=== PATIENT | female | born 1965 | race Caucasian/White ===

== ENCOUNTER → 2016-03-02 | Outpatient (CLI) | payer BC ==
[~2016-03-02] MED LIST: CLR10 PO; DOCU-94 PO; OXYC-57 PO; RIVA1TAB4 PO; TAMO20TA47 PO
== END | disposition home or self-care (01) ==
LOC: C.CPL 16:58
PROVIDERS: ATTEND Obstetrics & Gynecology
DX: Z01.812 Encounter for preprocedural laboratory examination (principal); Z01.810 Encounter for preprocedural cardiovascular examination

== ENCOUNTER 2016-03-29 08:38 | Observation (INO) | payer BC ==
[2016-03-02 18:58] LABS: BASO % 0.4 %; BASO ABS # 0.02 K/uL (0-0.2); COMPLETE YES; EOS % 1.2 %; HEMATOCRIT 32.6 % (37-47); IG% 0.2 %; LYMPH % 36.9 %; LYMPH ABS # 1.85 K/uL (1.2-3.4); MEAN CELL VOLUME 74.8 fL (80-100); MEAN CORPUSCULAR HEMOGLOBIN 23.4 pg (25-34); MEAN CORPUSCULAR HGB CONC 31.3 g/dl (32-36); MONO % 4.6 %; NEUT % 56.7 %; PLATELET COUNT 192 K/uL (130-400); RED BLOOD COUNT 4.36 M/uL (4.2-5.4); WHITE BLOOD COUNT 5.01 K/uL (4.8-10.8)
[2016-03-02 19:17] LABS: BLOOD UREA NITROGEN 22 mg/dl (7-18); CALCIUM 8.7 mg/dl (8.5-10.1); CARBON DIOXIDE 26 mmol/L (21-32); CHLORIDE 108 mmol/L (98-107); CREATININE 0.86 mg/dl (0.60-1.20); GLUCOSE 91 mg/dl (70-99); POTASSIUM 4.1 mmol/L (3.5-5.1); SODIUM 145 mmol/L (136-145)
[2016-03-11 09:51] VITALS: BMI 29.0
[2016-03-29] VITALS (7 sets, daily range): BP systolic 106–134; BP diastolic 66–88; PULSE 48–80; TEMP 36.4–36.6; O2SAT 97–100; Ht 167.6 cm; Wt 82.7 kg
[~2016-03-29] VITALS: Ht 167.6 cm; Wt 82.7 kg
[~2016-03-29 08:38] MED LIST changes: +ATROPINE SULFATE 0.1 MG/ML 5ML SYR IV PRN; +CEFAZOLIN 2000 MG/60 ML D5W 50 ML IV SCH; -DOCU-94 PO; +EpHEDrine SULFATE INJ 50 MG/ML AMP IV PRN; +HYDROmorphone INJ 1 MG/ML SYR IV PRN; +LACTATED RINGER'S 1000ML 1,000 ML IV SCH; +ONDANSETRON INJ 2 MG/ML 2 ML VIAL IV PRN; -OXYC-57 PO; -RIVA1TAB4 PO
[2016-03-29 09:09] LABS: MEAN CELL VOLUME 76.4 fL (80-100); MEAN CORPUSCULAR HEMOGLOBIN 24.6 pg (25-34); PLATELET COUNT 184 K/uL (130-400); RED BLOOD COUNT 4.84 M/uL (4.2-5.4); WHITE BLOOD COUNT 3.66 K/uL (4.8-10.8)
[2016-03-29 09:15] LABS: MEAN CORPUSCULAR HGB CONC 32.2 g/dl (32-36)
[2016-03-29] MEDS ORDERED: FENTANYL CITRATE INJ 50 MCG/1 ML 2 ML VIAL ONE ×2 (10:54→14:56)
[2016-03-29] MEDS ORDERED: MIDAZOLAM HCL 1 MG/ML 2ML VIAL ONE (10:54)
--- NOTE | 2016-03-29 11:25 | History & Physical Bridge Note ---
H&P Re-Evaluation Bridge Note: I have examined the patient, reviewed the History & Physical and in the interval since the performance of the History & Physical I have noted the following changes of clinical significance: No changes noted
[2016-03-29] MEDS ORDERED: METHYLENE BLUE 0.5% 10 ML VIAL ONE (11:26)
[2016-03-29] MEDS ORDERED: BUPIVACAINE 0.5 % 5 MG/1 ML MPF 30ML VIAL ONE (11:26)
[2016-03-29] MEDS ORDERED: HYDROmorphone INJ 2 MG/ML SYR/VIAL ONE (12:48)
[2016-03-29] MEDS ORDERED: LIDOCAINE HCL 2% 2 ML VIAL (20MG/ML) ONE (12:58)
[2016-03-29] MEDS ORDERED: ONDANSETRON INJ 2 MG/ML 2 ML VIAL ONE (12:58)
[2016-03-29] MEDS ORDERED: PROPOFOL IV EMULSION 10 MG/ML 20 ML VIAL IV ONE (12:58)
[2016-03-29] MEDS ORDERED: ROCURONIUM BROMIDE 10 MG/ML 5 ML VIAL ONE (12:58)
[2016-03-29] MEDS ORDERED: GLYCOPYRROLATE INJ 0.2 MG/ML VIAL ONE (13:42)
[2016-03-29] MEDS ORDERED: NEOSTIGMINE METHYLSULFATE 5 MG/5 ML SYR ONE (13:42)
[2016-03-29] MEDS ORDERED: TISSEEL FIBRIN SEALANT 2ML TOP ONE (14:11)
--- NOTE | 2016-03-29 14:56 | [facility] Post Operative Brief Note ---
Immediate Operative Summary Operative Date Mar 29, 2016. Pre-Operative Diagnosis Abnormal uterine bleeding Post-Operative Diagnosis Same Procedure(s) Performed Robotic Assisted Total Laparoscopic Hysterectomy Bilateral Salpingectomy, Cystoscopy Surgeon Dr Ch Crop Pest Control Specialist Surgeon(s) Dr Ceja Estimated Blood Loss 20 mL Findings Normal appearing uterus, tubes, ovaries. Normal appearing pelvis/abdomen. Bilateral ureters with urine jet. Specimens A. Uterus, bilateral fallopian tubes and cervix Drains de luna to gravity, clear yellow Anesthesia general Complication(s) None Disposition Recovery Room / PACU
[2016-03-29] MEDS: FENTANYL CITRATE INJ 50 MCG/1 ML 2 ML VIAL IV PRN ×4 (14:58→15:13)
[2016-03-29] MEDS ORDERED: KETOROLAC TROMETHAMINE 30 MG/ML VIAL IV. PRN (15:00)
[2016-03-29] MEDS ORDERED: IBUPROFEN 600 MG TAB PO PRN (15:00)
[2016-03-29] MEDS ORDERED: OXYCODONE/ACETAMINOPHEN 5-325 TAB PO PRN (15:00)
[2016-03-29] MEDS ORDERED: PROMETHAZINE HCL INJ 25 MG in SODIUM CHLORIDE 0.9% 50ML 50 ML IV PRN (15:00)
[2016-03-29] MEDS ORDERED: BISACODYL 10 MG SUPP PR PRN (15:00)
[2016-03-29] MEDS ORDERED: ONDANSETRON INJ 2 MG/ML 2 ML VIAL IV PRN (15:00)
[2016-03-29] MEDS ORDERED: SIMETHICONE 80 MG CHEW PO PRN (15:00)
[2016-03-29] MEDS ORDERED: MAGNESIUM HYDROXIDE SUSP 30 ML UDC PO PRN (15:00)
[2016-03-29] MEDS ORDERED: IV FLUIDS COMPLETED PRN (15:15)
--- NOTE | 2016-03-29 15:24 | Anesthesiology Progress Note ---
Anesthesia Post Op Note Date & Time Mar 29, 2016 at 15:24 Vital Signs Pain Intensity: 4 Vital Signs Past 12 Hours Date Time Temp Pulse Resp B/P Pulse Ox O2 Delivery O2 Flow Rate FiO2 03/29/16 15:20 36.1 54 12 102/68 100 Nasal Cannula 2 03/29/16 15:10 52 12 94/59 97 Nasal Cannula 2 03/29/16 15:00 58 12 113/70 100 Nasal Cannula 2 03/29/16 14:51 36.2 69 12 120/80 98 Nasal Cannula 2 03/29/16 09:21 36.6 80 18 131/85 97 Room Air Notes Mental Status: alert / awake / arousable, participated in evaluation Pt Amnestic to Procedure: Yes Nausea / Vomiting: adequately controlled Pain: adequately controlled Airway Patency, RR, SpO2: stable & adequate BP & HR: stable & adequate Hydration State: stable & adequate Anesthetic Complications: no major complications apparent
[2016-03-29] MEDS: OXYCODONE/ACETAMINOPHEN 5-325 TAB PO PRN ×2 (18:34→22:58)
[2016-03-29 21:12] LABS: HEMATOCRIT 32.6 % (37-47)
[2016-03-29] MEDS: DOCUSATE SODIUM 100 MG CAP PO SCH (21:33)
[2016-03-30 01:15] VITALS: BP 115/67; PULSE 77; TEMP 36.8; O2SAT 96
--- NOTE | 2016-03-30 01:33 | OPERATIVE REPORT ---
DATE OF OPERATION: 03/29/2016 PREOPERATIVE DIAGNOSES: Abnormal uterine bleeding, current tamoxifen use, and history of breast cancer. POSTOPERATIVE DIAGNOSES: Same. PROCEDURE PERFORMED: 1. Robotic-assisted total laparoscopic hysterectomy. 2. Bilateral salpingectomy. 3. Cystoscopy. SURGEON: Dr. Ch. EXECUTIVE VP: Dr. Ceja. ESTIMATED BLOOD LOSS: 20 mL FINDINGS: Normal appearing uterus, tubes, and ovaries. Normal appearing pelvis and abdomen. Bilateral ureters showing urine jet. SPECIMENS: Uterus, bilateral fallopian tubes, and cervix. DRAINS: Velasco to gravity, clear yellow. ANESTHESIA: General. COMPLICATIONS: None. DISPOSITION: Stable and good to recovery room. DESCRIPTION OF PROCEDURE: The patient was seen in the preoperative holding area where risks, benefits, alternatives to surgery were reviewed. She elected to proceed with surgery. Informed consent had previously been obtained in the office. All questions were answered. She was taken to the operating room where timeout was called. She was placed under general anesthesia. The abdomen and vagina were prepped and draped in the normal sterile fashion. A Velasco catheter was inserted, a long weighted speculum was placed in the vagina, and anterior wall retractor was placed in the vagina. The cervix was grasped with a single tooth tenaculum and bilateral 0 Vicryl sutures were placed at 3 o'clock and 9 o'clock in the cervix. The medium VCare was then inserted through the cervical os and tied into place with the cervical sutures. Gloves were changed and attention was then turned to the abdomen where a supraumbilical port site was created using the open Reginald cut down technique. The Reginald trocar was placed without difficulty. Gas was used to insufflate the abdomen. A right trocar, a left trocar and a left night assistant port were placed under direct visualization. The da Fifi camera was then inserted and the da Fifi robot was docked and the patient was placed in steep Trendellenberg position. The left uteroovarian ligament was coagulated and cut, followed by the removal of the left fallopian tube using of monopolar scissors. The round ligament was coagulated and cut using PK bipolar cautery and ligated using hot lori. A bladder flap was created with hot lori and the bladder was dissected down from the cervix. Bilateral uterine vessels were coagulated. The procedure was repeated on the contralateral side. The VCare cuff was identified and the incision was made in the cervicovaginal junction on top of the vaginal cuff. This was repeated the entire way around the cervix. This freed the uterus from the surrounding vagina. The uterus was then delivered posteriorly through the vagina using robotic night assistant. The vaginal cuff was reapproximated using a running locked stitch of V-Loc suture. The ureters were identified bilaterally. The entire pelvis was hemostatic. Tisseel was used on all cut edges. Cystoscopy was performed. The bladder was visualized with the above-noted findings. At the conclusion of the cystoscopy, bilateral ureter jets were visualized. The robot was undocked. The supraumbilical site was closed with a suture of 0 Vicryl and the skin was closed with 4-0 Vicryl using subcuticular stitches. Dermabond was placed. The final needle, sponge and instrument counts were correct x2. The patient tolerated the procedure well and she left to go to the recovery room in stable and good condition. I attest to the content of the Intraoperative Record and any orders documented therein. Any exceptio ns are noted below.
[2016-03-30] MEDS ORDERED: OXYC-57 PO (02:50)
--- NOTE | 2016-03-30 02:58 | Discharge Instructions ---
Discharge Instructions Admission Reason for Admission: Abnormal Uterine Bleeding Discharge Discharge Diagnosis / Problem: s/p laparoscopic total hysterectomy Discharge Goals Goal(s): Routine recovery after surgery Activity Recommendations Activity Limitations: per Instructions/Follow-up section . Instructions / Follow-Up Instructions / Follow-Up ACTIVITY RECOMMENDATIONS: Activity: * During the first week at home, your activity should be similar to that done at the hospital prior to discharge. Your primary activity is in-house walking interspersed with rest periods. Preparing lunch for yourself is acceptable. You may go up and down stairs. Try to stay up progressively longer periods of time to help regain your strength more quickly. * During the second week at home, activities should include some meal preparation, walking to strengthen abdominal muscles and riding in a car. You may drive a car and make brief shopping trips at the end of the second week at home. * Lifting should not exceed 15-20 pounds during the first month after surgery. * Sexual intercourse can usually be resumed about 6 weeks after surgery depending on findings at your post-operative examinations. Bathing: * Showers or baths are permissible. Sitting in four to six inches of hot water (sitz bath) is often comforting after vaginal surgery and is permitted at any time. A sitz bath at bedtime can also assist in a better night's sleep. SPECIAL CARE INSTRUCTIONS: The major discomforts related to surgery have now passed and progressive improvement will occur. The tight uncomfortable feeling in the abdominal, pelvic and back area will gradually fade away. Fatigue may take the longest to disappear; your energy level may take several weeks to return to normal. At times you may become frustrated or impatient over not feeling as well or doing as much as you'd like , but this is a normal reaction to surgery and will pass with time. Vaginal Discharge: * Odorous, blood-tinged or brownish discharge may be present for one to three weeks after surgery. * Pads should be used and not tampons. * Stitches may be passed vaginally. * Bleeding may be somewhat increased approximately two weeks after surgery, which is related to the stitches dissolving. * If bleeding becomes free flowing, notify our office at . Bowel Care: * Constipation after surgery is very common. Foods that promote bowel activity (bran, fruit, prune juice) should be included in your diet. * A capsule, DIALOSE-PLUS, can be purchased without a prescription and can be taken daily (one or two capsules) to assist in promoting bowel activity. * If you have had vaginal surgery involving your rectum, we will discuss this when discharged from the hospital. Catheter or "CYSTO-CATH": * Approximately 80% of "bladder repair" patients will require a catheter at home until the swelling recedes. * Some patients require days to weeks before adequate bladder emptying will resume. * In general, after each time you urinate, un-clamp the catheter again. Measure the amount in the bag. When this is consistently below 100cc, call the office to make an appointment to have the catheter removed. Temperature: * Any fever above 100.4 degrees F should be reported to our office at . FOLLOW-UP: Post-Operative Appointments: * Individual instructions will have been given about the timing of your first examination, but this is usually at the end of the second week home. * You will need to call the office at soon after discharge to make the appointment for your post-op check-up if it has not already been scheduled. * Additional information regarding activity, sexual intercourse and when to return to work will be given at this appointment. WE WISH YOU A SPEEDY RECOVERY! Current Hospital Diet Patient's current hospital diet: Clear Liquid Diet Discharge Diet Recommended Diet: Regular Diet Procedures Procedures Performed: Robotic Assisted Total Laparoscopic Hysterectomy Bilateral Salpingectomy, Cystoscopy Pending Studies Studies pending at discharge: no Medical Emergencies . Who to Call and When: Medical Emergencies: If at any time you feel your situation is an emergency, please call 911 immediately. . Non-Emergent Contact Non-Emergency issues call your: Primary Care Provider, Lamp Inspector . . "Provider Documentation" section prepared by Shilpa Ch. VTE Core Measure Inpt VTE Proph given/why not?: Contraindicated
[2016-03-30] MEDS: OXYCODONE/ACETAMINOPHEN 5-325 TAB PO PRN (03:33)
[2016-03-30 03:35] VITALS: BP 114/77; PULSE 73; TEMP 36.6; O2SAT 95
[2016-03-30 07:06] LABS: BUN/CREATININE RATIO 15.6 (10-20); CREATININE 0.81 mg/dl (0.60-1.20)
[2016-03-30 07:29] LABS: MEAN CORPUSCULAR HEMOGLOBIN 24.8 pg (25-34); WHITE BLOOD COUNT 5.73 K/uL (4.8-10.8)
[2016-03-30 07:32] LABS: ANISOCYTOSIS PRESENT; BASO % 0.3 %; BASO ABS # 0.02 K/uL (0-0.2); COMPLETE YES; EOS % 0.7 %; IG% 0.3 %; LYMPH % 36.8 %; LYMPH ABS # 2.11 K/uL (1.2-3.4); MONO % 5.8 %; NEUT % 56.1 %; OVALOCYTES 1+; PLATELET COUNT 138 K/uL (130-400); PLT ESTIMATE NORMAL
[2016-03-30 07:45] VITALS: BP 119/83; PULSE 66; TEMP 36.6; O2SAT 95
[2016-03-30] MEDS: DOCUSATE SODIUM 100 MG CAP PO SCH (07:45)
[2016-03-30] MEDS ORDERED: INFLUENZA VIRUS QUAD VACCINE 0.5 ML SYR IM. ONE (08:00)
[2016-03-30] MEDS ORDERED: INFLUENZA ADMINISTRATION CHARGE ONE (08:00)
--- NOTE | 2016-03-30 08:21 | OB/GYN Progress Note ---
AIRPLANE AND ENGINE INSPECTOR Progress Note Date of Service Mar 30, 2016. Subjective conversation w/ patient Ambulation: ambulating normally Voiding: no voiding problems Passing Gas: Yes Diet Tolerance: Regular Diet Pain: controlled Review of Systems Constitutional: No problem reported Respiratory: No problem reported Cardiac: No problem reported Breast: No problem reported Abdomen: No problem reported Female : No problem reported Objective Vital Signs Date Time Temp Pulse Resp B/P Pulse Ox O2 Delivery O2 Flow Rate FiO2 03/30/16 07:29 36.6 73 16 95 Room Air 03/30/16 03:35 36.6 73 16 114/77 95 Room Air 03/30/16 01:15 96 Room Air 03/30/16 01:15 36.8 77 20 115/67 96 Room Air 03/29/16 21:10 36.5 66 20 134/88 Room Air 03/29/16 18:50 36.6 73 18 106/66 100 Room Air 03/29/16 17:50 36.6 73 18 106/66 100 Room Air 03/29/16 16:50 99 Room Air 03/29/16 16:50 48 20 107/70 99 Room Air 03/29/16 16:20 36.4 50 18 118/76 100 Room Air 03/29/16 15:50 98 Nasal Cannula 2.0 03/29/16 15:50 36.4 54 18 112/71 98 Nasal Cannula 2.0 03/29/16 15:30 36.2 54 16 109/69 100 Nasal Cannula 2 03/29/16 15:20 36.1 54 12 102/68 100 Nasal Cannula 2 03/29/16 15:10 52 12 94/59 97 Nasal Cannula 2 03/29/16 15:00 58 12 113/70 100 Nasal Cannula 2 03/29/16 14:51 36.2 69 12 120/80 98 Nasal Cannula 2 03/29/16 09:21 36.6 80 18 131/85 97 Room Air Physical Exam General Appearance: WELL-APPEARING, NO APPARENT DISTRESS Respiratory/Chest: normal breath sounds, no respiratory distress Cardiovascular: regular rate, rhythm Abdomen: non tender, soft Incision Description: Clean, Dry & Intact Extremities: non-tender, normal inspection Laboratory Results Last 24 Hours Test 03/29/16 09:00 03/29/16 09:33 03/29/16 20:43 03/30/16 06:12 White Blood Count 3.66 K/uL 5.73 K/uL Red Blood Count 4.84 M/uL 4.00 M/uL Hemoglobin 11.9 g/dL 10.4 g/dL 9.9 g/dL Hematocrit 37.0 % 32.6 % 30.0 % Mean Corpuscular Volume 76.4 fL 75.0 fL Mean Corpuscular Hemoglobin 24.6 pg 24.8 pg Mean Corpuscular Hemoglobin Concent 32.2 g/dl 33.0 g/dl RDW Standard Deviation 60.3 fL 59.0 fL RDW Coefficient of Variation 21.4 % 21.3 % Platelet Count 184 K/uL 138 K/uL Neutrophils (%) (Auto) 56.1 % Lymphocytes (%) (Auto) 36.8 % Monocytes (%) (Auto) 5.8 % Eosinophils (%) (Auto) 0.7 % Basophils (%) (Auto) 0.3 % Neutrophils # (Auto) 3.21 K/uL Lymphocytes # (Auto) 2.11 K/uL Monocytes # (Auto) 0.33 K/uL Eosinophils # (Auto) 0.04 K/uL Basophils # (Auto) 0.02 K/uL Immature Granulocyte % (Auto) 0.3 % Immature Granulocyte # (Auto) 0.02 K/uL Platelet Estimate NORMAL Anisocytosis PRESENT Ovalocytes 1+ Sodium Level 144 mmol/L Potassium Level 4.0 mmol/L Chloride Level 108 mmol/L Carbon Dioxide Level 27 mmol/L Anion Gap 9.0 mmol/L Blood Urea Nitrogen 13 mg/dl Creatinine 0.81 mg/dl Est Creatinine Clear Calc Drug Dose 88.0 ml/min Estimated GFR () 96.8 Estimated GFR (Non- 83.5 BUN/Creatinine Ratio 15.6 Random Glucose 84 mg/dl Calcium Level 8.0 mg/dl Assessment and Plan Post-Op Day Number: 1 Continue Routine Care: POD#1. Doing well. Discharge to home today. Instructions reviewed. RTO 2w for postop visit.
--- NOTE | 2016-04-12 11:09 | DISCHARGE SUMMARY ---
PREOPERATIVE DIAGNOSIS: Abnormal uterine bleeding. POSTOPERATIVE DIAGNOSIS: Same. PROCEDURES PERFORMED: Robotic assisted total laparoscopic hysterectomy with bilateral salpingectomy and cystoscopy. SURGEON: Dr. Ch. DEBIT AGENT: Dr. Ceja. INFECTION: None. COURSE OF STAY: The patient was admitted following the above noted procedures. Her postoperative course was unremarkable. She was discharged to home in stable and good condition on 03/30/2016. MEDICATIONS: Percocet and Motrin. ACTIVITY: Pelvic rest and no heavy lifting. DIET: Regular. FOLLOWUP: In 2 weeks in the office.
[2016-04-23] MEDS ORDERED: RIVA1TAB4 PO ×2 (09:47→10:08)
== END 2016-03-30 08:30 | disposition home or self-care (01) ==
LOC: C.ACU 08:38 → C.MS4N 09:40
PROVIDERS: ADMIT Obstetrics & Gynecology; ATTEND Obstetrics & Gynecology
DX: N93.9 Abnormal uterine and vaginal bleeding, unspecified (principal); N84.0 Polyp of corpus uteri; N72 Inflammatory disease of cervix uteri; N83.8 Other noninflammatory disorders of ovary, fallopian tube and broad ligament; C50.919 Malignant neoplasm of unspecified site of unspecified female breast; Z79.810 Long term (current) use of selective estrogen receptor modulators (SERMs)
CPT/HCPCS: 58571; S2900

== ENCOUNTER 2016-04-22 00:30 | Observation (INO) | payer BC, OTHER ==
[~2016-04-22] VITALS: Ht 165.1 cm; Wt 83.0 kg
[~2016-04-22 00:30] MED LIST changes: -ATROPINE SULFATE 0.1 MG/ML 5ML SYR IV PRN; -CEFAZOLIN 2000 MG/60 ML D5W 50 ML IV SCH; -EpHEDrine SULFATE INJ 50 MG/ML AMP IV PRN; -HYDROmorphone INJ 1 MG/ML SYR IV PRN; -LACTATED RINGER'S 1000ML 1,000 ML IV SCH; -ONDANSETRON INJ 2 MG/ML 2 ML VIAL IV PRN
[2016-04-22] MEDS ORDERED: SODIUM CHLORIDE 0.9% 1000ML 1,000 ML IV STA ×2 (00:34)
[2016-04-22] MEDS ORDERED: MoRPHine SULFATE 4 MG/ML 1 ML CARP\\VIAL IV STA ×2 (00:34→03:06)
[2016-04-22] MEDS ORDERED: ONDANSETRON INJ 2 MG/ML 2 ML VIAL IV STA (00:34)
[2016-04-22] MEDS ORDERED: OPTIRAY 320 IV PRN (00:45)
[2016-04-22] MEDS ORDERED: DOCU-94 PO (01:05)
[2016-04-22 01:29] LABS: ISTAT CREATININE 1.1 mg/dl (0.6-1.3); ISTAT HEMOGLOBIN 11.6 g/dl (12.0-16.0); ISTAT IONIZED CALCIUM 1.03 mmol/l (1.12-1.32)
[2016-04-22 01:50] LABS: BASO % 0.2 %; BASO ABS # 0.02 K/uL (0-0.2); EOS % 2.2 %; HEMATOCRIT 34.7 % (37-47); IG% 0.2 %; LYMPH % 8.2 %; LYMPH ABS # 0.69 K/uL (1.2-3.4); MEAN CORPUSCULAR HEMOGLOBIN 25.6 pg (25-34); MEAN CORPUSCULAR HGB CONC 32.9 g/dl (32-36); MONO % 4.4 %; NEUT % 84.8 %; PLATELET COUNT 175 K/uL (130-400); RED BLOOD COUNT 4.45 M/uL (4.2-5.4); WHITE BLOOD COUNT 8.46 K/uL (4.8-10.8)
[2016-04-22 02:07] LABS: CALCIUM 7.7 mg/dl (8.5-10.1); CREATININE 1.2 mg/dl (0.60-1.20); POTASSIUM 3.9 mmol/L (3.5-5.1)
[2016-04-22 02:31] LABS: ANISOCYTOSIS PRESENT; COMPLETE YES
[2016-04-22 02:48] LABS: URINE APPEARANCE CLEAR (CLEAR); URINE BILIRUBIN NEG (NEG); URINE COLOR YELLOW; URINE EPITHELIAL CELL AUTO >30 /lpf (0-5); URINE NITRITE NEG (NEG); URINE PH 6.5 (4.5-7.5); URINE SPECIFIC GRAVITY 1.021 (1.000-1.030); UROBILINOGEN NEG (NEG); ZZUR CULT IF INDIC CLEAN CATCH YES
[2016-04-22 02:54] LABS: MANUAL MICROSCOPIC REQUIRED? NO; REVIEW REQ? NO
--- NOTE | 2016-04-22 02:54 | EMERGENCY ROOM VISIT NOTE ---
History First contact with patient: 00:34 Chief Complaint: ABDOMINAL PAIN Stated Complaint: ABDOMINAL PAIN Nursing Triage Summary: Patient arrived via ems. ems reports patient had 10/10 abdominal pain cramping aqfter eating dinner tonight. Patient is status post partial histerectomy. History of Present Illness The patient is a 50 year old female who presents to the Emergency Room with complaints of lower abdominal pain for the past few hours who had a robotic hysterectomy [address] Ch. Patient has been taking a stool softener but has been having decreased bowel movements. She describes the pain as aching, ranging in severity 8 out of 10. Nothing makes the pain better or worse. EMS gave her fentanyl enroute. Patient denies chest pain, dyspnea, fever, chills, nausea, vomiting, back pain, urinary symptoms, vaginal itching, vaginal discomfort, vaginal discharge. Review of Systems See HPI for pertinent positives & negatives. A total of 10 systems reviewed and were otherwise negative. Past Medical/Surgical History Surgical Problems: (1) S/P laparoscopic hysterectomy History of breast cancer Social History Smoking Status: Never Smoker Smokeless Tobacco Use: No Drug Use: none Marital Status: Housing Status: lives with family Current/Historical Medications Scheduled Docusate Sodium (Colace), 1 CAP PO DAILY Tamoxifen (Nolvadex), 20 MG PO QAM Allergies Coded Allergies: No Known Allergies (Unverified , 03/29/16) Physical Exam Vital Signs Date Time Temp Pulse Resp B/P Pulse Ox O2 Delivery O2 Flow Rate FiO2 04/22/16 02:21 85 18 135/86 96 Room Air 04/22/16 01:00 78 04/22/16 00:38 37.2 76 16 145/87 100 Room Air 04/22/16 00:38 100 Room Air Physical Exam VITALS: Vitals are noted on the nurse's note and reviewed by myself. Vital signs stable. GENERAL: Pleasant female, in no acute distress, nondiaphoretic, well-developed well-nourished. SKIN: The skin was without rashes, erythema, edema, or bruising. There is no tenting of the skin. Capillary reflex less than 2 seconds. HEAD: Normocephalic atraumatic. EARS: External auditory canals clear, tympanic membranes pearly olmstead without erythema or effusion bilaterally. EYES: Pupils equal round and reactive to light and accommodation. Conjunctivae without injection, sclerae without icterus. Extraocular movements intact. NOSE: Patent, turbinates without inflammation or discharge. MOUTH: Mucous membranes moist. Pharynx without erythema or exudate. Uvula midline. Airway patent. Tongue does not deviate. NECK: Supple without nuchal rigidity. No lymphadenopathy. No thyromegaly. Cervical spine is nontender. No JVD. HEART: Regular rate and rhythm without murmurs gallops or rubs. LUNGS: Clear to auscultation bilaterally without wheezes, rales or rhonchi. No dullness to percussion. No retractions or accessory muscle use. ABDOMEN: Positive bowel sounds x 4. Normal tympanic percussion. Soft, tender to palpation lower abdomen, no CVA tenderness, without masses or organomegaly. Leigh sign negative. No guarding or rebound tenderness. MUSCULOSKELETAL: No muscle atrophy, erythema, or edema noted. NEURO: Patient was alert and oriented to person place and time. Normal sensation to light and sharp touch. No focal neurological deficits. Medical Decision & Procedures Laboratory Results 04/22/16 01:35 Red Blood Count 4.45, Mean Corpuscular Volume 78.0, Mean Corpuscular Hemoglobin 25.6, Mean Corpuscular Hemoglobin Concent 32.9, Neutrophils (%) (Auto) 84.8, Lymphocytes (%) (Auto) 8.2, Monocytes (%) (Auto) 4.4, Eosinophils (%) (Auto) 2.2 , Basophils (%) (Auto) 0.2, Neutrophils # (Auto) 7.17, Lymphocytes # (Auto) 0.69 , Monocytes # (Auto) 0.37, Eosinophils # (Auto) 0.19, Basophils # (Auto) 0.02 04/22/16 01:35 Test 04/22/16 00:00 04/22/16 01:11 04/22/16 01:35 Bedside Hemoglobin 11.6 g/dl (12.0-16.0) Bedside Hematocrit 34 % (37-47) Bedside Sodium 140 mEq/L (135-144) Bedside Potassium 3.7 mEq/L (3.3-5.0) Bedside Chloride 106 mEq/L (101-112) Bedside Total CO2 20 mEq/l (24-31) Bedside Blood Urea Nitrogen 18 mg/dl (7-18) Bedside Creatinine 1.1 mg/dl (0.6-1.3) Bedside Glucose (other) 115 mg/dl (70-99) Bedside Ionized Calcium (Pepper) 1.03 mmol/l (1.12-1.32) White Blood Count 8.46 K/uL (4.8-10.8) Red Blood Count 4.45 M/uL (4.2-5.4) Hemoglobin 11.4 g/dL (12.0-16.0) Hematocrit 34.7 % (37-47) Mean Corpuscular Volume 78.0 fL (80-100) Mean Corpuscular Hemoglobin 25.6 pg (25-34) Mean Corpuscular Hemoglobin Concent 32.9 g/dl (32-36) Platelet Count 175 K/uL (130-400) Neutrophils (%) (Auto) 84.8 % Lymphocytes (%) (Auto) 8.2 % Monocytes (%) (Auto) 4.4 % Eosinophils (%) (Auto) 2.2 % Basophils (%) (Auto) 0.2 % Neutrophils # (Auto) 7.17 K/uL (1.4-6.5) Lymphocytes # (Auto) 0.69 K/uL (1.2-3.4) Monocytes # (Auto) 0.37 K/uL (0.11-0.59) Eosinophils # (Auto) 0.19 K/uL (0-0.5) Basophils # (Auto) 0.02 K/uL (0-0.2) RDW Standard Deviation 58.2 fL (36.4-46.3) RDW Coefficient of Variation 20.3 % (11.5-14.5) Immature Granulocyte % (Auto) 0.2 % Immature Granulocyte # (Auto) 0.02 K/uL (0.00-0.02) Anisocytosis PRESENT Anion Gap 9.0 mmol/L (3-11) Est Creatinine Clear Calc Drug Dose 58.4 ml/min Estimated GFR () 60.2 Estimated GFR (Non- 51.9 BUN/Creatinine Ratio 15.0 (10-20) Calcium Level 7.7 mg/dl (8.5-10.1) Total Bilirubin 0.4 mg/dl (0.2-1) Direct Bilirubin 0.1 mg/dl (0-0.2) Aspartate Amino Transf (AST/SGOT) 22 U/L (15-37) Alanine Aminotransferase (ALT/SGPT) 30 U/L (12-78) Alkaline Phosphatase 62 U/L (45-117) Total Protein 6.8 gm/dl (6.4-8.2) Albumin 3.2 gm/dl (3.4-5.0) Lipase 188 U/L (73-393) Medications Administered Medications (Trade) Dose Ordered Sig/Sharon Route Start Time Stop Time Status Last Admin Dose Admin Sodium Chloride 1,000 ml @ 999 mls/hr Q1H1M STAT IV 04/22/16 00:34 04/22/16 01:34 DC 04/22/16 00:34 999 MLS/HR Sodium Chloride (Nss 1000ml) 1,000 ml @ 125 mls/hr Q8H STAT IV 04/22/16 00:34 04/22/16 08:33 04/22/16 00:34 125 MLS/HR Ondansetron HCl (Zofran Inj) 4 mg NOW STAT IV 04/22/16 00:34 04/22/16 00:37 DC 04/22/16 01:14 4 MG Morphine Sulfate (MoRPHine SULFATE INJ) 4 mg NOW STAT IV 04/22/16 00:34 04/22/16 00:37 DC 04/22/16 01:15 4 MG ED Course Prior records/ancillary studies reviewed. Triage Nursing notes reviewed. Additional history obtained from family. The patient's history was concerning for abdominal pain. Differential diagnosis: Etiologies such as appendicitis, diverticulitis, PUD, biliary pathology, UTI, pancreatitis, obstruction, mesenteric ischemia, aortic pathology, infections, inflammatory bowel disease, renal colic, as well as others were entertained. Physical examination findings: As above. ER treatment provided: Morphine, Zofran, IV fluids On reassessment the patient felt better. Diagnostics interpreted by me: The labs revealed no worrisome leukocytosis or electrolyte abnormality Imaging studies: CT ABDOMEN & PELVIS: No prior CT. Suspected right ovarian vein thrombosis. Example image 45 series 2. Free fluid in the abdomen and pelvis. No discrete drainable collection. There is increased density of right uroepithelium suggested. No hydronephrosis. Peripelvic cysts suspected on the left. Findings can be seen in urinary tract infection. Recommend correlation with UA. Suspected portions of borderline appendix in the retrocecal region. There is some fluid around the appendix not specific given free fluid. Appendix likely within normal limits. There are mildly distended fluid-filled small bowel segments. This is seen in lower abdomen and pelvis primarily. May represent ileus. No definite obstruction seen. Possible mural thickening of the small bowel segments versus incomplete distention. Correlate for enteritis. Adnexal regions are not well evaluated. Suspect high position of left ovary with cyst measuring about 2.4 cm. Possible collapsing right ovarian cyst measuring about 2.3 cm. L5 pars defects with anterolisthesis L5 on S1 and asymmetric degenerative changes at L5-S1 along with other nonemergent, incidental findings. Lung bases: Atelectasis. Calcified and noncalcified nodules, for example right middle lobe image 33 series 3. Radiologist: Enrrique Dos Santos M.D. Consultation: A consultation was placed with the ADMINISTRATIVE [employer], Dr. Sims. The case was discussed and diagnostics were reviewed. She recommends medical admission. I spoke to Dr. Sharpe and accepts admission of the patient. The patient was evaluated in the ER for further treatment. Exam and history seem concerning for thrombosis of the ovarian vein. Medicine requested to do the anticoagulation and workup. This is deferred to them. Patient is agreeable to treatment plan of admission.By the evaluation outlined above emergent etiologies such as appendicitis, diverticulitis, PUD, biliary pathology, UTI, pancreatitis, obstruction, mesenteric ischemia, aortic pathology , infections, inflammatory bowel disease, renal colic, as well as others were deemed relatively unlikely. The pt informed about the findings as listed above. All questions were answered and pleased with the treatment. Case reviewed with my attending Medical Decision As above Impression Primary Impression: Thrombosis of ovarian vein Departure Information Dispostion Being Evaluated By Hospitalist Condition FAIR Referrals Georgiana Osborne M.D. (PCP) Patient Instructions My [facility]
--- NOTE | 2016-04-22 03:38 | History and Physical ---
History & Physical Date & Time of Service: Apr 22, 2016 at 03:21 Chief Complaint: Abdominal Pain Primary Care Physician: Georgiana Osborne M.D. History of Present Illness Source: patient Mrs. Trotter is a 50 year old female with Hx of breast ca s/p radiotherapy and recent hysterectomy for abnormal uterine bleeding who presents to the ER with a few days of right lower quadrant pain. Initially she noticed pain on her right lower quadrant 2 days previously on 20 April just after eating dinner and had 1 hour of mild cramping pain which she put down ot has. Without medications this pain completely resolved. She went to her husbands appointment in [place] the following day and was without pain all day until again 1 hour after eating in the evening she developed sudden onset right lower quadrant pain again, severity 4-5/10, she felt a little better after one hour but it did not fully resolve. She then got up to go to the bathroom around 10:30pm and suddenly the severity was 8-9/10 over whole of her lower abdomen and she called for help at which point her family called 911. The pain only resolved with fentanyl when given by the EMT. While in the ER she received x2 morphine 4mg but continues to have 4-5/10 pain on the right side worse on palpation She denies any change in bowel habit, last BM was yesterday evening was normal. Since the surgery however she took 1 week of opiate medication for pain relief and has been needing Colace to help relieve constipation. No nausea or vomiting. She denies history of kidney stones. Other than the hysterectomy she has not had any other abdominal surgeries. Past Medical/Surgical History Breast ca. - diagnosed 2013 treated with left breast lumpectomy with radiation and currently still taking tamoxifen Irregular heavy periods Past Surgical History Hysterectomy Mar 29 - Dr Ch Left breast lumpectomy 2013 Family History FHx mother had PE aged 87yo. Sister - ?DVT Sister - no medical issues x2 brothers - no medical issues Social History Smoking Status: Never Smoker Smokeless Tobacco Use: No Drug Use: none Marital Status: Allergies Coded Allergies: No Known Allergies (Unverified , 03/29/16) Home Medications Scheduled Docusate Sodium (Colace), 1 CAP PO DAILY Tamoxifen (Nolvadex), 20 MG PO QAM Review of Systems Constitutional: No chills, No fever Eyes: No worsening of vision ENT: No hearing loss Respiratory: No cough, No shortness of breath, No sputum, No wheezing Cardiovascular: No chest pain Abdomen: + pain, No GI bleeding, No constipation, No diarrhea, No nausea, No vomiting Musculoskeletal: No joint pain, No muscle pain Genitourinary - Female: No dysuria, No urinary frequency, No urinary incontinence, No urinary retention, No urinary urgency Psychiatric: No depression symptoms Endocrine: No fatigue Hematologic / Lymphatic: No abnormal bleeding/bruising Integumentary: No itch, No rash Physical Exam Vital Signs Date Time Temp Pulse Resp B/P Pulse Ox O2 Delivery O2 Flow Rate FiO2 04/22/16 02:21 85 18 135/86 96 Room Air 04/22/16 01:00 78 04/22/16 00:38 37.2 76 16 145/87 100 Room Air 04/22/16 00:38 100 Room Air General Appearance: WD/WN, no apparent distress Head: normocephalic, atraumatic Eyes: normal inspection, PERRL, EOMI ENT: normal ENT inspection (external), pharynx normal Neck: supple, no JVD, trachea midline Respiratory/Chest: chest non-tender, lungs clear, normal breath sounds, no respiratory distress, no accessory muscle use Cardiovascular: regular rate, rhythm, no edema, no JVD, no murmur, normal peripheral pulses Abdomen/GI: normal bowel sounds, soft, + tenderness (right lower quadrant, without rebound or guarding) Back: no CVA tenderness Extremities/Musculoskelatal: no calf tenderness (size equal b/l), no pedal edema, normal range of motion Neurologic/Psych: jig filler II-XII nml as tested (no facial droop), no motor/sensory deficits, alert, oriented x 3 Skin: normal color, warm/dry, no rash Diagnostics Laboratory Results Results Past 24 Hours Test 04/22/16 00:00 04/22/16 01:11 04/22/16 01:35 Range/Units Urine Color YELLOW Urine Appearance CLEAR CLEAR Urine pH 6.5 4.5-7.5 Urine Specific [place] 1.021 1.000-1.030 Urine Protein NEG NEG Urine Glucose (UA) NEG NEG Urine Ketones NEG NEG Urine Occult Blood 2+ NEG Urine Nitrite NEG NEG Urine Bilirubin NEG NEG Urine Urobilinogen NEG NEG Urine Leukocyte Esterase SMALL NEG Urine WBC (Auto) 5-10 0-5 /hpf Urine RBC (Auto) 0-4 0-4 /hpf Urine Hyaline Casts (Auto) 0 0-5 /lpf Urine Epithelial Cells (Auto) >30 0-5 /lpf Urine Bacteria (Auto) 1+ NEG Bedside Hemoglobin 11.6 12.0-16.0 g/dl Bedside Hematocrit 34 37-47 % Bedside Sodium 140 135-144 mEq/L Bedside Potassium 3.7 3.3-5.0 mEq/L Bedside Chloride 106 101-112 mEq/L Bedside Total CO2 20 24-31 mEq/l Anion Gap 18.0 9.0 3-11 mmol/L Bedside Blood Urea Nitrogen 18 7-18 mg/dl Bedside Creatinine 1.1 0.6-1.3 mg/dl Bedside Glucose (other) 115 70-99 mg/dl Bedside Ionized Calcium (Pepper) 1.03 1.12-1.32 mmol/l White Blood Count 8.46 4.8-10.8 K/uL Red Blood Count 4.45 4.2-5.4 M/uL Hemoglobin 11.4 12.0-16.0 g/dL Hematocrit 34.7 37-47 % Mean Corpuscular Volume 78.0 80-100 fL Mean Corpuscular Hemoglobin 25.6 25-34 pg Mean Corpuscular Hemoglobin Concent 32.9 32-36 g/dl Platelet Count 175 130-400 K/uL Neutrophils (%) (Auto) 84.8 % Lymphocytes (%) (Auto) 8.2 % Monocytes (%) (Auto) 4.4 % Eosinophils (%) (Auto) 2.2 % Basophils (%) (Auto) 0.2 % Neutrophils # (Auto) 7.17 1.4-6.5 K/uL Lymphocytes # (Auto) 0.69 1.2-3.4 K/uL Monocytes # (Auto) 0.37 0.11-0.59 K/uL Eosinophils # (Auto) 0.19 0-0.5 K/uL Basophils # (Auto) 0.02 0-0.2 K/uL RDW Standard Deviation 58.2 36.4-46.3 fL RDW Coefficient of Variation 20.3 11.5-14.5 % Immature Granulocyte % (Auto) 0.2 % Immature Granulocyte # (Auto) 0.02 0.00-0.02 K/uL Anisocytosis PRESENT Sodium Level 142 136-145 mmol/L Potassium Level 3.9 3.5-5.1 mmol/L Chloride Level 109 98-107 mmol/L Carbon Dioxide Level 24 21-32 mmol/L Blood Urea Nitrogen 18 7-18 mg/dl Creatinine 1.20 0.60-1.20 mg/dl Est Creatinine Clear Calc Drug Dose 58.4 ml/min Estimated GFR () 60.2 Estimated GFR (Non- 51.9 BUN/Creatinine Ratio 15.0 10-20 Random Glucose 110 70-99 mg/dl Calcium Level 7.7 8.5-10.1 mg/dl Total Bilirubin 0.4 0.2-1 mg/dl Direct Bilirubin 0.1 0-0.2 mg/dl Aspartate Amino Transf (AST/SGOT) 22 15-37 U/L Alanine Aminotransferase (ALT/SGPT) 30 12-78 U/L Alkaline Phosphatase 62 45-117 U/L Total Protein 6.8 6.4-8.2 gm/dl Albumin 3.2 3.4-5.0 gm/dl Lipase 188 73-393 U/L Microbiology Results 04/22/16 Urine Culture, Received Pending Diagnostic Radiology CT A/P [facility] report Suspected right ovarian vein thrombosis, free fluid in abdomen and pelvis. Increased density in right uroepithelium, findings can be seen in UTI Some fluid around the appendix not specific given free fluid. Appendix likely within normal limits Mildly distended fluid filled bowel segments. May represent ileus. Possible mural thickening of the small bowel segments versus incomplete distension. Correlate for enteritis. Adnexal regions are not well evaluated. Suspect high position of left ovarian cyst measuring about 2.4cm. Possible collapsing right ovarian cyst measuring about 2.3cm. Impression Assessment and Plan 50 year old female with Hx breast ca. on tamoxifen and recent hysterectomy. CT A /P suspected right ovarian vein thrombosis 2 weeks after hysterectomy. 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 NOAG in morning - await full CT A/P report - Consult [facility] [facility] - consider TVUS for diagnosis confirmation given high amount of differentials on CT report, however she is only two weeks out from hysterectomy therefore will confirm with [employer] SUCCESS ADVISOR whether or not this can be done. - Follow up with oncologist regarding tamoxifen and need for hypercoagulable workup given family history Hx breast ca - Continue tamoxifen VTE Prophylaxis - treatment dose Lovenox as above Code - Full Disposition - observation status to med/surg. Possible discharge later today after above. Level of Care Med/Surg VTE Prophylaxis VTE Risk Assessment Done? Y/N: Yes Risk Level: High Given or contraindicated: Enoxaparin (Lovenox)SQ Additional Copies To Georgiana Osborne M.D. Resident Tracking Resident Involvement: Resident Care Provided Care Provided: [facility] Assessment and Plan Attending Addendum: I have physically seen and examined this patient, have directed their medical care, have supervised the medical residents activities, and agree with the H&P as noted above, with the following changes: NONE The patient is awake, well-developed and adequately nourished, alert and oriented 3, normocephalic and atraumatic, lying in bed and in no acute distress. HEENT--PERRL, EOMI, mucous membranes and oropharynx dry. Neck--supple, no JVD or bruits, thyroid normal, trachea midline, no adenopathy. Heart--normal S1 and S2, no extra beats, no murmurs, rubs or gallops. Lungs--clear bilaterally with good air movement, no respiratory distress, no accessory muscle use. Abdomen--normal bowel sounds and soft, tender lower abdomen and nondistended, no hernias or masses, no organomegaly. Extremities--no cyanosis, clubbing or edema. There are good distal pulses b/l. Dermatologic--normal skin turgor, normal color, warm and dry, no abnormal lymph nodes, no rash. Neurologic--cranial nerves II through XII grossly intact, motor and sensory examination normal. Rheumatologic--normal range of motion, nontender, muscles and joints. Psychiatric--normal affect. Assessment and plan: Ex Right ovarian vein thrombosis/abdominal pain--risk factors for thrombosis include breast cancer, tamoxifen use, and family history. The patient will be admitted to observation status medical floor. Emergency department has spoken with Dr. Badillo from [employer] [facility] service, who feels that the patient should be admitted. She'll be placed on therapeutic Lovenox 1 mg/kg subcutaneous every 12 hours, once it is determined insurance coverage , she can be started on long- acting anticoagulation at that time. She will need to discuss with her oncologist the continued use of tamoxifen, which she has to half years left, and the utility of a viable workup.
[2016-04-22] MEDS ORDERED: IV FLUIDS COMPLETED PRN (04:15)
[2016-04-22 04:50] VITALS: BP 123/80; PULSE 73; TEMP 36.9; O2SAT 98; Ht 165.1 cm; Wt 83.0 kg
[2016-04-22] MEDS: ENOXAPARIN 80 MG/0.8 ML SYR SQ SCH ×2 (05:26→18:08)
[2016-04-22] MEDS: ACETAMINOPHEN 325 MG TAB PO PRN ×2 (05:27→21:57)
[2016-04-22] MEDS: KETOROLAC TROMETHAMINE 30 MG/ML VIAL IV PRN ×2 (06:49→18:07)
--- NOTE | 2016-04-22 07:42 | DIAGNOSTIC IMAGING REPORT ---
ABDOMEN AND PELVIS CT WITH IV CONTRAST CT DOSE: 510.91 mGy.cm HISTORY: severe low abd pain, recent hysterectomy TECHNIQUE: Multiaxial CT images of the abdomen and pelvis were performed following the use of intravenous contrast. COMPARISON STUDY: None. FINDINGS: Lingular calcified granuloma. No pneumoperitoneum. No pneumatosis. Bilateral L5 spondylolysis with associated grade I anterolisthesis. Trace perihepatic fluid. The liver, gallbladder, pancreas, spleen, and adrenal glands are unremarkable. Left peripelvic renal cysts. No hydronephrosis. Mild thickening and enhancement within the right renal pelvis and right ureter. The bladder is unremarkable. The uterus is surgically absent. Small amount of fluid within the deep pelvis which is not completely loculated at this time to suggest an abscess. Thrombosed right ovarian vein. Suboptimal evaluation for bowel pathology due to lack of oral contrast. Normal caliber appendix. Small peripheral enhancing low density structure along the right deep pelvis on image 332 may represent a collapsed right ovarian cyst. This measures 2.5 cm. Small amount of fluid surrounding the appendix is likely due to postoperative change. A few mildly dilated fluid-filled loops of small bowel in the deep pelvis. This favors a mild ileus. No evidence for bowel obstruction at this time. IMPRESSION: 1. Status post hysterectomy. Small amount of fluid within the deep pelvis is not loculated at this time to suggest an abscess. There is also small amount of fluid within the right lower quadrant and perihepatic locations. This is likely postoperative. 2. Thrombosed right ovarian vein. 3. Appendix is partially obscured by surrounding fluid but is likely normal in caliber. 4. Mild urothelial thickening and enhancement within the right renal pelvis and right ureter. Recommend correlation with urinalysis to exclude a pyelitis. 5. Additional findings as described above. Electronically signed by: Carson Collins M.D. 04/22/2016 7:41 AM Dictated Date/Time: 04/22/2016 7:31 AM
[2016-04-22 08:00] VITALS: BP 105/70; PULSE 72; TEMP 37; O2SAT 96
[2016-04-22] MEDS: DOCUSATE SODIUM 100 MG CAP PO SCH (09:26)
[2016-04-22] MEDS: TAMOXIFEN CITRATE 10 MG TAB PO SCH (09:28)
--- NOTE | 2016-04-22 09:41 | GYNECOLOGICAL CONSULTATION ---
DATE OF CONSULTATION: 04/22/2016 DATE OF CONSULTATION: 04/22/2016. REQUESTED BY: [facility], Dr. Fam Sandra. CHIEF COMPLAINT: Wanting to know if transvaginal ultrasound can be performed in this postop hysterectomy patient. HISTORY OF PRESENT ILLNESS: Ms. Trotter is a 50-year-old white female with a history of breast cancer status post radiotherapy who recently had a total laparoscopic hysterectomy and bilateral salpingectomy performed by my colleague, Dr. Shilpa Ch. This surgery was uncomplicated. Her ovaries remained intact and normal in appearance. There were no complications. The patient was discharged within 24 hours of her surgery. The patient was seen for a 2-week postoperative visit on April 12, was doing extremely well, was having no issues. The patient notes that approximately 2 days ago on Tuesday she had an episode after eating dinner about 1 hour of very specific right lower quadrant pain that she described as cramping, thought it was bowel related. It resolved spontaneously within an hour. The following day she was pain free. She was able to do her normal daily activities without pain all day and then again 1 hour after eating dinner she developed this onset quite suddenly of some right lower quadrant pain. She described it as 4-5/10 and that it was crampy and that it slowly got better but did not fully resolve. She went to bed at around 10:00 and then at 10:30 got up to go to the bathroom and had an sudden onset of increased severity of this pain which she described over her whole lower abdomen and upper abdomen, at which point in time she called for help, 911 was called and she was brought to the hospital. She was evaluated at the hospital, the pain responded to fentanyl in the field and then in the ER received 2 doses of morphine, but continued to have pain. The patient was put in the CT scanner with only IV contrast for CT scan of the abdomen and pelvis. This revealed several peripheral finding. The gallbladder, pancreas, liver and spleen were normal and unremarkable. There was left peripelvic renal cysts. There was no hydronephrosis noted. There was mild thickening enhancement within the right renal pelvis and right ureter. The bladder was unremarkable. The uterus was surgically absent. There was a small amount of fluid within the deep pelvis which was not completely loculated at the time to suggest abscess. There was a thrombosed right ovarian vein, normal caliber appendix, small peripheral enhancing and low density structure along the right deep pelvis that may represent a collapsed ovarian cyst measuring 2.5 cm. The small amount of fluid surrounding the appendix was thought to be postoperative. There were a few mildly dilated fluid filled loops of bowel in the deep pelvis favoring a mild ileus. I visit the patient this morning. She is lying comfortably in bed. She notes her pain is a 1-2/10. She notes she has had no fevers at home. No nausea, vomiting, no chilling. She notes her last bowel movement was Tuesday and the one before that was Tuesday. She notes that she does not particularly feel constipated nor does she have diarrhea. She notes she has been passing gas. She notes no vaginal bleeding or unusual vaginal discharge. Overall, she is feeling much better. I recommended that the patient be admitted by medicine to consider treatment for her right ovarian vein thrombosis. It appears that she will be getting Lovenox. Of note, this patient has been on tamoxifen 20 mg daily throughout this time and she does have a history of breast cancer. PAST GYNECOLOGIC HISTORY: As noted above. PAST MEDICAL HISTORY: Significant for breast cancer diagnosed in 2013, treated with left breast lumpectomy and radiation, currently taking tamoxifen. She had a history of irregular heavy periods for which she underwent her hysterectomy. PAST SURGICAL HISTORY: Includes laparoscopic total hysterectomy and bilateral salpingectomy on 03/30/2016 and a left breast lumpectomy 2013. FAMILY HISTORY: Mother had a PE age 87, sister has questionable DVT history, 2 brothers with no medical history. SOCIAL HISTORY: She is . She denies significant tobacco, alcohol or drug use. ALLERGIES: He has no known drug allergies. MEDICATIONS AT HOME: Included docusate sodium and tamoxifen. The patient noted that she had taken narcotics OxyIR for about 4 days post-surgery and has taken none since. PHYSICAL EXAMINATION: GENERAL: This is a well-developed, well-nourished white female who is sitting comfortably in her bed. VITAL SIGNS: Her temperature is 36.9, pulse 73, respiration rate 118, blood pressure 123/80. NECK: Supple without thyromegaly or lymphadenopathy. CHEST: Clear to auscultation bilaterally. CARDIOVASCULAR: Regular rate and rhythm without murmurs, gallops or rubs. ABDOMEN: Soft, nondistended. She does note some slight discomfort to palpation in the mid lower pelvis to the right lower quadrant, but there is no rebound or guarding. There are positive bowel sounds noted. EXTREMITIES: Show no edema, no tenderness. Negative Homans sign. PELVIC EXAMINATION: Deferred. LABORATORY DATA: White count 8.46, hemoglobin 11.4, hematocrit 34.7, platelets 175, creatinine 1.1. Her creatinine was 0.86 when she left the hospital after her surgery. Liver functions are normal. Random glucose was 110. Electrolytes normal. Urinalysis revealed 2+ occult blood, small leukocyte esterase, greater than 30 epithelials, +1 bacteria and 5-[address] scan as noted above. ASSESSMENT: This is a 50-year-old white female approximately 3 weeks out from a total laparoscopic hysterectomy and bilateral salpingectomy without complications by my partner Dr. Ch. The patient had the sudden onset of generalized abdominal pain last night. CT scan revealed a right ovarian vein thrombosis which could indeed be the cause of her pain. She has been admitted by the hospitalist service, [facility] hospitalist service and it appears that she will be anticoagulated for this. She has some nonspecific inflammatory changes of the right renal collecting system. I am not sure how to attribute this to her current care. It is very unlikely that she has ureteral injury presenting this far out from her surgery. Typically if the ureter is injured and the patient is leaking urine into her abdomen she will have presented prior to this. Would recommend a cath UA c/s as this finding could be explained by pyelitis. We will attempt to discuss with urology this finding and see what they think about this. I do not suspect that this patient has an abscess. The fluid that is noted in her pelvis most likely consistent with normal postop. She has a normal white blood cell count and no fevers. It is unlikely that this ovarian vein is septic pelvic thrombophlebitis as the patient has not had fevers and adding antibiotics will probably not be indicated. I would NOT recommend a transvaginal ultrasound at this time as she is only 3 weeks out from her hysterectomy and I feel like the risk of disrupting the cuff with the transvaginal probe is outweighed by the potential added information it would give us. I would base the treatment of her ovarian vein thrombosis on the CT scan. Additionally, I think the CT scan is probably more specific for this than an ultrasound may be. A pelvic exam was deferred because the patient is not having any vaginal issues, discharge or bleeding at this time. Consider coagulopathy workup as there appears to be a family hx. May have just been precipitated by surgery. Thank you for this consult. We will continue to follow with you peripherally. Should anything change, please do not hesitate to contact us. The patient does have a followup in our office for a postsurgical exam at [address] Ch where her cuff will indeed be examined. ALICIAD
[2016-04-22 11:10] VITALS: BP 123/78; PULSE 70; TEMP 36.8; O2SAT 98
[2016-04-22 15:25] VITALS: BP 111/75; PULSE 65; TEMP 36.8; O2SAT 97
--- NOTE | 2016-04-22 15:25 | DIAGNOSTIC IMAGING REPORT ---
KUB CLINICAL HISTORY: Lower abdominal pain. Recent hysterectomy. FINDINGS: 2 AP supine abdominal radiographs are correlated with abdominal CT performed the same day 04/22/2016. There is a nonobstructed abdominal bowel gas pattern. There is no radiographic evidence of nephrolithiasis. Numerous phleboliths are identified in the pelvis. Excreted IV contrast fills the bladder. The lung bases appear clear. The bony structures appear intact. IMPRESSION: 1. Nonobstructed abdominal bowel gas pattern. 2. Excreted contrast fills the bladder. Electronically signed by: Sandor Beltrán M.D. 04/22/2016 3:23 PM Dictated Date/Time: 04/22/2016 3:20 PM
--- NOTE | 2016-04-22 21:23 | Family Medicine Progress Note ---
Progress Note Date of Service Apr 22, 2016. Subjective Pt evaluation today including: conversation w/ patient, physical exam, lab review Pain: RLQ pain 1-2/10 Voiding: no voiding problems Patient was seen at the bedside. She was lying down comfortably on her bed. She states that she is feeling better and the abdominal pain is 1-2/10 now. Denies nausea, vomiting, dysuria, hematuria, or any other additional complaints. Constitutional: No chills, No fever, No weight loss Respiratory: No cough, No dyspnea at rest, No dyspnea on exertion, No shortness of breath, No wheezing Cardiovascular: No chest pain, No edema Abdomen: + pain (1-2/10 on the RLQ), No constipation, No diarrhea, No nausea , No vomiting Musculoskeletal: No joint pain, No muscle pain Female : No abnormal vaginal bleeding, No dysuria, No hematuria, No vaginal discharge Skin: No rash Medications Current Inpatient Medications Medications (Trade) Dose Ordered Sig/Sharon Route Start Time Stop Time Status Last Admin Dose Admin Ioversol (Optiray 320) 100 ml UD PRN IV 04/22/16 00:45 04/26/16 00:44 Enoxaparin Sodium (Lovenox Inj) 80 mg Q12@0600,1800 SQ 04/22/16 05:15 05/22/16 05:14 04/22/16 18:08 80 MG Acetaminophen (Tylenol Tab) 650 mg Q4H PRN PO 04/22/16 03:45 05/22/16 03:44 04/22/16 05:27 650 MG Docusate Sodium (coLACE CAP) 100 mg DAILY PO 04/22/16 09:00 05/22/16 08:59 04/22/16 09:26 100 MG Tamoxifen Citrate (Nolvadex Tab) 20 mg QAM PO 04/22/16 09:00 05/22/16 08:59 04/22/16 09:28 20 MG Miscellaneous (Iv Fluids Completed) 1 ea PRN PRN N/A 04/22/16 04:15 04/22/17 04:14 Ketorolac Tromethamine (Toradol Inj) 30 mg Q6H PRN IV 04/22/16 06:45 04/27/16 06:44 04/22/16 18:07 30 MG Objective Vital Signs Date Time Temp Pulse Resp B/P Pulse Ox O2 Delivery O2 Flow Rate FiO2 04/22/16 15:25 36.8 65 16 111/75 97 Room Air 04/22/16 15:25 97 Room Air 04/22/16 11:10 36.8 70 18 123/78 98 Room Air 04/22/16 08:00 Room Air 04/22/16 08:00 37.0 72 18 105/70 96 Room Air 04/22/16 04:50 36.9 73 18 123/80 98 Room Air 04/22/16 04:15 89 20 110/69 97 Room Air 04/22/16 02:21 85 18 135/86 96 Room Air 04/22/16 01:00 78 04/22/16 00:38 37.2 76 16 145/87 100 Room Air 04/22/16 00:38 100 Room Air Physical Exam General Appearance: WD/WN, no apparent distress Neck: supple, no JVD, trachea midline Respiratory/Chest: chest non-tender, lungs clear, normal breath sounds, no respiratory distress, no accessory muscle use Cardiovascular: regular rate, rhythm, no edema Abdomen: normal bowel sounds, non tender, soft, no pulsatile mass Extremities: non-tender, no pedal edema, no calf tenderness Neurologic/Psychiatric: alert, normal mood/affect, oriented x 3 Skin: normal color, warm/dry, no rash Laboratory Results Results Past 24 Hours Test 04/22/16 00:00 04/22/16 01:11 04/22/16 01:35 Range/Units Urine Color YELLOW Urine Appearance CLEAR CLEAR Urine pH 6.5 4.5-7.5 Urine Specific Hayes 1.021 1.000-1.030 Urine Protein NEG NEG Urine Glucose (UA) NEG NEG Urine Ketones NEG NEG Urine Occult Blood 2+ NEG Urine Nitrite NEG NEG Urine Bilirubin NEG NEG Urine Urobilinogen NEG NEG Urine Leukocyte Esterase SMALL NEG Urine WBC (Auto) 5-10 0-5 /hpf Urine RBC (Auto) 0-4 0-4 /hpf Urine Hyaline Casts (Auto) 0 0-5 /lpf Urine Epithelial Cells (Auto) >30 0-5 /lpf Urine Bacteria (Auto) 1+ NEG Bedside Hemoglobin 11.6 12.0-16.0 g/dl Bedside Hematocrit 34 37-47 % Bedside Sodium 140 135-144 mEq/L Bedside Potassium 3.7 3.3-5.0 mEq/L Bedside Chloride 106 101-112 mEq/L Bedside Total CO2 20 24-31 mEq/l Anion Gap 18.0 9.0 3-11 mmol/L Bedside Blood Urea Nitrogen 18 7-18 mg/dl Bedside Creatinine 1.1 0.6-1.3 mg/dl Bedside Glucose (other) 115 70-99 mg/dl Bedside Ionized Calcium (Pepper) 1.03 1.12-1.32 mmol/l White Blood Count 8.46 4.8-10.8 K/uL Red Blood Count 4.45 4.2-5.4 M/uL Hemoglobin 11.4 12.0-16.0 g/dL Hematocrit 34.7 37-47 % Mean Corpuscular Volume 78.0 80-100 fL Mean Corpuscular Hemoglobin 25.6 25-34 pg Mean Corpuscular Hemoglobin Concent 32.9 32-36 g/dl Platelet Count 175 130-400 K/uL Neutrophils (%) (Auto) 84.8 % Lymphocytes (%) (Auto) 8.2 % Monocytes (%) (Auto) 4.4 % Eosinophils (%) (Auto) 2.2 % Basophils (%) (Auto) 0.2 % Neutrophils # (Auto) 7.17 1.4-6.5 K/uL Lymphocytes # (Auto) 0.69 1.2-3.4 K/uL Monocytes # (Auto) 0.37 0.11-0.59 K/uL Eosinophils # (Auto) 0.19 0-0.5 K/uL Basophils # (Auto) 0.02 0-0.2 K/uL RDW Standard Deviation 58.2 36.4-46.3 fL RDW Coefficient of Variation 20.3 11.5-14.5 % Immature Granulocyte % (Auto) 0.2 % Immature Granulocyte # (Auto) 0.02 0.00-0.02 K/uL Anisocytosis PRESENT Sodium Level 142 136-145 mmol/L Potassium Level 3.9 3.5-5.1 mmol/L Chloride Level 109 98-107 mmol/L Carbon Dioxide Level 24 21-32 mmol/L Blood Urea Nitrogen 18 7-18 mg/dl Creatinine 1.20 0.60-1.20 mg/dl Est Creatinine Clear Calc Drug Dose 58.4 ml/min Estimated GFR () 60.2 Estimated GFR (Non- 51.9 BUN/Creatinine Ratio 15.0 10-20 Random Glucose 110 70-99 mg/dl Calcium Level 7.7 8.5-10.1 mg/dl Total Bilirubin 0.4 0.2-1 mg/dl Direct Bilirubin 0.1 0-0.2 mg/dl Aspartate Amino Transf (AST/SGOT) 22 15-37 U/L Alanine Aminotransferase (ALT/SGPT) 30 12-78 U/L Alkaline Phosphatase 62 45-117 U/L Total Protein 6.8 6.4-8.2 gm/dl Albumin 3.2 3.4-5.0 gm/dl Lipase 188 73-393 U/L Microbiology Results 04/22/16 Urine Culture, Received Pending Assessment and Plan This is a 50 y/o female with Hx breast CA on tamoxifen and recent hysterectomy presented to the hospital complaining of RLQ pain. CT showed right ovarian vein thrombosis. 1. 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 Badillo. She doesn't recommend transvaginal ultrasound at this time given she is only s/p 3 wks of hysterectomy and the risk of disrupting the cuff with the transvaginal probe is outweighed by the potential added information from the TVUS. Also deferred pelvic exam because the patient is not having any vaginal issues, discharge or bleeding at this time. Recommended discharge home with anticoagulant. - Patient should follow up with oncologist regarding tamoxifen and need for hypercoagulable workup given family history, which can be done as outpatient - Patient will be discharge home with anticoagulant for 3 months. Will discuss with case mx in am about xarelto coverage. 2. Hx breast ca - Continue tamoxifen - Recommended to follow up with the heme/onc as outpatient 3. VTE Prophylaxis - treatment dose Lovenox as above 4. Code Status - Full Code Reviewed: Pt Seen/Exam by Me Constitutional: denies: fever Respiratory: negative: short of breath Cardiovascular: denies chest pain Gastrointestinal/Abdominal: positive: constipation (last bm 2 days ago), negative: abdominal pain General Appearance: no apparent distress Respiratory: lungs clear, no respiratory distress Cardiovascular: regular rate, rhythm Gastrointestinal: normal bowel sounds, non tender, soft Neurologic/Psychiatric: alert, oriented x 3 Skin Characteristics: warm/dry Assessment/Plan I have reviewed the medical record and performed a history and physical examination of this patient today. I have discussed the case with Dr. Lima. The above note reflects my findings, conclusions, and recommendations.
[2016-04-23 00:20] VITALS: BP 107/69; PULSE 69; TEMP 36.5; O2SAT 97
[2016-04-23] MEDS: ACETAMINOPHEN 325 MG TAB PO PRN (06:07)
[2016-04-23] MEDS: ENOXAPARIN 80 MG/0.8 ML SYR SQ SCH (06:11)
[2016-04-23 07:47] LABS: HEMATOCRIT 32.1 % (37-47); MEAN CELL VOLUME 78.5 fL (80-100); MEAN CORPUSCULAR HEMOGLOBIN 25.2 pg (25-34); MEAN CORPUSCULAR HGB CONC 32.1 g/dl (32-36); MEAN PLATELET VOLUME 9.9 fL (7.4-10.4); PLATELET COUNT 155 K/uL (130-400); RED BLOOD COUNT 4.09 M/uL (4.2-5.4)
[2016-04-23 07:57] LABS: PARTIAL THROMBOPLASTIN RATIO 1.2; PROTHROMBIN TIME (PATIENT) 10.5 SECONDS (9.0-12.0)
[2016-04-23 08:17] LABS: BUN/CREATININE RATIO 11.4 (10-20); CALCIUM 8.2 mg/dl (8.5-10.1); CREATININE 1.4 mg/dl (0.60-1.20); POTASSIUM 4.1 mmol/L (3.5-5.1)
[2016-04-23 08:40] VITALS: BP 122/84; PULSE 85; TEMP 36.4; O2SAT 97
[2016-04-23] MEDS: DOCUSATE SODIUM 100 MG CAP PO SCH (08:42)
[2016-04-23] MEDS: TAMOXIFEN CITRATE 10 MG TAB PO SCH (08:43)
[2016-04-23] MEDS ORDERED: RIVA1TAB4 PO ×3 (09:47→10:08)
--- NOTE | 2016-04-23 09:52 | Discharge Instructions ---
Discharge Instructions Date of Service Apr 23, 2016. Admission Reason for Admission: Abdominal Pain, Trombosis Of Ovarian Vein Discharge Discharge Diagnosis / Problem: Ovarian vein thrombosis Discharge Goals Goal(s): Decrease discomfort, Improve disease control, Therapeutic intervention Activity Recommendations Activity Limitations: resume your previous activity . Instructions / Follow-Up Instructions / Follow-Up You were admitted to the hospital for abdominal pain and on imaging found to have ovarian vein thrombosis. PATHOLOGY TECHNOLOGIST was consulted and at this moment they don't think you don't need to have transvaginal ultrasound given the possible complication. Recommended to start on blood thinner. Please take Xarelto 15mg twice for 20 days and then 20mg daily for total 3 months. Please follow up with the Heme/Onc regarding tamoxifen and for hypercoagulable workup given family history. Follow up with the PATHOLOGY TECHNOLOGIST. Current Hospital Diet Patient's current hospital diet: Regular Diet Discharge Diet Recommended Diet: Regular Diet Pending Studies Studies pending at discharge: no Medical Emergencies . Who to Call and When: Medical Emergencies: If at any time you feel your situation is an emergency, please call 911 immediately. . Non-Emergent Contact Non-Emergency issues call your: Primary Care Provider . . "Provider Documentation" section prepared by Dillon Lima. VTE Core Measure Inpt VTE Proph given/why not?: Enoxaparin (Lovenox)SQ
[2016-04-23 10:31] VITALS: BP 122/84; PULSE 85; TEMP 36.4; O2SAT 97
--- NOTE | 2016-04-23 12:23 | Progress Note ---
Progress Note Date of Service Apr 23, 2016. Progress Note CAKE [facility]IXER Progress Note Patient seen/examined. Today, she is feeling well. Pain has improved. Scant pink vaginal discharge - no bleeding. Denies fever/chills/nausea/vomiting. Tolerating PO. Ambulating ok. Last Vital Signs Documentation Date Time Temp Pulse Resp B/P Pulse Ox O2 Delivery O2 Flow Rate FiO2 04/23/16 10:31 36.4 85 16 97 Room Air 04/23/16 08:40 122/84 Gen: AAOx3 NAD Abd: Soft, NTTP. Incisions healing well. : no bleeding Ext: no edema, no calf tenderness Back: no CVAT Last 24 Hours Test 04/23/16 07:39 White Blood Count 3.80 K/uL Red Blood Count 4.09 M/uL Hemoglobin 10.3 g/dL Hematocrit 32.1 % Mean Corpuscular Volume 78.5 fL Mean Corpuscular Hemoglobin 25.2 pg Mean Corpuscular Hemoglobin Concent 32.1 g/dl RDW Standard Deviation 59.3 fL RDW Coefficient of Variation 20.6 % Platelet Count 155 K/uL Mean Platelet Volume 9.9 fL Prothrombin Time 10.5 SECONDS Prothromb Time International Ratio 1.0 Activated Partial Thromboplast Time 31.1 SECONDS Partial Thromboplastin Ratio 1.2 Sodium Level 144 mmol/L Potassium Level 4.1 mmol/L Chloride Level 112 mmol/L Carbon Dioxide Level 22 mmol/L Anion Gap 10.0 mmol/L Blood Urea Nitrogen 16 mg/dl Creatinine 1.40 mg/dl Est Creatinine Clear Calc Drug Dose 50.0 ml/min Estimated GFR () 49.9 Estimated GFR (Non- 43.1 BUN/Creatinine Ratio 11.4 Random Glucose 82 mg/dl Calcium Level 8.2 mg/dl A/P 1. 50yo with ovarian venous thrombosis, s/p robotic-assisted hysterectomy 3 weeks ago - started on anticoagulation per medicine/heme - due to recent surgery, do not recommend transvaginal ultrasound. Recommend nothing in vagina for 6 weeks postop - no vaginal bleeding 2. Elevated creatinine - does not seem to be related to surgery, as Cr on POD#1 was 0.81. No CVA tenderness, and she is urinating well. During surgery, bilateral ureter flow was seen on cysto. - recommend further workup by medicine, consider consultation of nephrology if medicine team feels is necessary 3. Will plan to see patient in the office at 6 weeks postop. Discussed possibility of increased bleeding with anticoagulants - surgically, she is likely healed - if she develops vaginal bleeding that fills a pad, please call and be seen sooner than 6 weeks postop.
--- NOTE | 2016-04-23 22:29 | Discharge Summary ---
Discharge Summary Date of Service Apr 23, 2016. (Dillon Lima MD) Discharge Summary Admission Date: Apr 22, 2016 at 03:47 Discharge Date: Apr 23, 2016 Discharge Disposition: Home Principal Diagnosis: Right ovarian vein thrombosis Procedures: Patient Name: BRETT BOYLE Unit Number: [id number] Dictated: 04/22/16730 Transcribed: 04/22/16730 [facility] Printed Date/Time: [~ rep prt dt]/[~ rep prt tm] [~ rep ct labl] - [~ rep ct ivnm] [facility] [place] [place] [address] Dictated: 04/22/16730 Transcribed: 04/22/16730 [facility] Printed Date/Time: [~ rep prt dt]/[~ rep prt tm] [~ rep ct labl] - [~ rep ct ivnm] ABDOMEN AND PELVIS CT WITH IV CONTRAST CT DOSE: 510.91 mGy.cm HISTORY: severe low abd pain, recent hysterectomy TECHNIQUE: Multiaxial CT images of the abdomen and pelvis were performed following the use of intravenous contrast. COMPARISON STUDY: None. FINDINGS: Lingular calcified granuloma. No pneumoperitoneum. No pneumatosis. Bilateral L5 spondylolysis with associated grade I anterolisthesis. Trace perihepatic fluid. The liver, gallbladder, pancreas, spleen, and adrenal glands are unremarkable. Left peripelvic renal cysts. No hydronephrosis. Mild thickening and enhancement within the right renal pelvis and right ureter. The bladder is unremarkable. The uterus is surgically absent. Small amount of fluid within the deep pelvis which is not completely loculated at this time to suggest an abscess. Thrombosed right ovarian vein. Suboptimal evaluation for bowel pathology due to lack of oral contrast. Normal caliber appendix. Small peripheral enhancing low density structure along the right deep pelvis on image 332 may represent a collapsed right ovarian cyst. This measures 2.5 cm. Small amount of fluid surrounding the appendix is likely due to postoperative change. A few mildly dilated fluid-filled loops of small bowel in the deep pelvis. This favors a mild ileus. No evidence for bowel obstruction at this time. IMPRESSION: 1. Status post hysterectomy. Small amount of fluid within the deep pelvis is not loculated at this time to suggest an abscess. There is also small amount of fluid within the right lower quadrant and perihepatic locations. This is likely postoperative. 2. Thrombosed right ovarian vein. 3. Appendix is partially obscured by surrounding fluid but is likely normal in caliber. 4. Mild urothelial thickening and enhancement within the right renal pelvis and right ureter. Recommend correlation with urinalysis to exclude a pyelitis. 5. Additional findings as described above. Electronically signed by: Carson Collins M.D. 04/22/2016 7:41 AM Dictated Date/Time: 04/22/2016 7:31 AM The status of this report is Signed. Draft = Not yet reviewed or approved by Radiologist. Signed = Reviewed and approved by Radiologist. <AttendingPhy>Fam Sandra M.D.</AttendingPhy> <FamilyPhy>Georgiana Osborne M.D.</FamilyPhy> <PrimaryPhy>Georgiana Osborne M.D.</PrimaryPhy> <UnitNumber> [id number]</UnitNumber> <VisitNumber>[id number]</VisitNumber> <PatientName> BRETT BOYLE Victorino</PatientName> <DateOfBirth>1965</DateOfBirth> <Location> C.MS4N</Location> <ServiceDate>04/22/16</ServiceDate> <MNE>ESINDI</MNE> < OrderingPhy>Estefany Robles PA-C</OrderingPhy> <OrderingPhyMNE>f rep ord dr tao</OrderingPhyMNE> <DictatingPhyMNE>f rep dict dr tao</DictatingPhyMNE> < CCListMNE>f rep ct jarrette</CCListMNE> <AdmittingPhyMNE>f pt admit dr tao</ AdmittingPhyMNE> <AttendingPhyMNE>f pt attend dr tao</AttendingPhyMNE> <ConsultingPhyMNE>f pt consult dr tao</ConsultingPhyMNE> <FamilyPhyMNE>f pt fam dr tao</FamilyPhyMNE> <OtherPhyMNE>f pt other dr tao</OtherPhyMNE> < PrimaryPhyMNE>f pt prim care dr tao</PrimaryPhyMNE> <ReferringPhyMNE>f pt referring dr tao</ReferringPhyMNE> Patient Name: BRETT BOYLE Unit Number: [id number] Dictated: 04/22/[id number] Transcribed: 04/22/16 152 EV Printed Date/Time: [~ rep prt dt]/[~ rep prt tm] [~ rep ct labl] - [~ rep ct ivnm] [facility] Radiology Department [place] [id number] Dictated: 04/22/16 152 Transcribed: 04/22/16 1520 [facility] Printed Date/Time: [~ rep prt dt]/[~ rep prt tm] [~ rep ct labl] - [~ rep ct ivnm] [facility] CLINICAL HISTORY: Lower abdominal pain. Recent hysterectomy. FINDINGS: 2 AP supine abdominal radiographs are correlated with abdominal CT performed the same day 04/22/2016. There is a nonobstructed abdominal bowel gas pattern. There is no radiographic evidence of nephrolithiasis. Numerous phleboliths are identified in the pelvis. Excreted IV contrast fills the bladder. The lung bases appear clear. The bony structures appear intact. IMPRESSION: 1. Nonobstructed abdominal bowel gas pattern. 2. Excreted contrast fills the bladder. Electronically signed by: Sandor Beltrán M.D. 04/22/2016 3:23 PM Dictated Date/Time: 04/22/2016 3:20 PM The status of this report is Signed. Draft = Not yet reviewed or approved by Radiologist. Signed = Reviewed and approved by Radiologist. <AttendingPhy>Zehra Camargo M.D.</AttendingPhy> <FamilyPhy>Georgiana Osborne M.D.< /FamilyPhy> <PrimaryPhy>Georgiana Osborne M.D.</PrimaryPhy> <UnitNumber>[id number]</ UnitNumber> <VisitNumber>[id number]</VisitNumber> <PatientName>BRETT BOYLE</PatientName> <DateOfBirth>1965</DateOfBirth> <Location>C.MS4N< /Location> <ServiceDate>04/22/16</ServiceDate> <MNE>ESINDI</MNE> <OrderingPhy> Jonas Stevenson M.D.</OrderingPhy> <OrderingPhyMNE>f rep ord dr tao</ OrderingPhyMNE> <DictatingPhyMNE>f rep dict dr tao</DictatingPhyMNE> <CCListMNE> f rep ct jarrette</CCListMNE> <AdmittingPhyMNE>f pt admit dr tao</AdmittingPhyMNE> < AttendingPhyMNE>f pt attend dr tao</AttendingPhyMNE> <ConsultingPhyMNE>f pt consult dr tao</ConsultingPhyMNE> <FamilyPhyMNE>f pt fam dr tao</FamilyPhyMNE> <OtherPhyMNE>f pt other dr tao</OtherPhyMNE> < PrimaryPhyMNE>f pt prim care dr tao</PrimaryPhyMNE> <ReferringPhyMNE>f pt referring dr tao</ReferringPhyMNE> (Dillon Lima MD) Medication Reconciliation New Medications: Rivaroxaban (Xarelto) 20 Mg Tab 20 MG PO DAILY for 70 Days, #70 TAB Rivaroxaban (Xarelto) 20 Mg Tab 15 MG PO BID for 20 Days, #28 TAB Continued Medications: Docusate Sodium (Colace) 100 Mg Cap 1 CAP PO DAILY, CAP Tamoxifen (Nolvadex) 20 Mg Tab 20 MG PO QAM, TAB Discharge Exam Patient was seen at the bedside. She states that her pain almost resolved, it is down to 2/10. She complains of generalized abdominal discomfort. She didn't have bowel movements for past 2 days, the generalized abdominal discomfort can be explained by this. Denies nausea or vomiting. Geovanny any other additional complaints. Review of Systems: Constitutional: No chills, No fever Respiratory: No cough, No dyspnea at rest, No dyspnea on exertion, No shortness of breath, No sputum, No wheezing Cardiovascular: No chest pain, No edema Abdomen: + pain (complains of generalized abdominal discomfort, RLQ pain is reduced to 1-2/10), No constipation, No diarrhea, No nausea, No vomiting Genitourinary - Female: No dysuria, No hematuria, No vaginal bleeding, No vaginal discharge Neurologic: No weakness Integumentary: No rash Physical Exam: General Appearance: WD/WN, no apparent distress Neck: supple, trachea midline Respiratory/Chest: chest non-tender, lungs clear, normal breath sounds, no respiratory distress, no accessory muscle use Cardiovascular: regular rate, rhythm, no edema Abdomen / GI: normal bowel sounds, non tender, soft Extremities: no calf tenderness, no pedal edema, non-tender Neurologic/Psychiatric: alert, normal mood/affect, oriented x 3 Skin: normal color, warm/dry, no rash (Dillon Lima MD) Review of Systems: Constitutional: No fever Respiratory: No shortness of breath Cardiovascular: No chest pain Abdomen: + problem reported (upper abdomen mild cramping after having a bowel movement), No nausea, No pain, No vomiting Physical Exam: General Appearance: no apparent distress Respiratory/Chest: lungs clear, no respiratory distress Cardiovascular: regular rate, rhythm Abdomen / GI: normal bowel sounds, non tender, soft Neurologic/Psychiatric: alert, oriented x 3 Skin: warm/dry (Zehra Camargo M.D.) Hospital Course This is a 50 y/o female with Hx breast CA on tamoxifen and recent hysterectomy presented to the hospital complaining of RLQ pain. CT showed right ovarian vein thrombosis. Right ovarian vein thrombosis Patient was started on Lovenox. Consulted GEOLOGICAL SURVEY FIELD ASSISTANT and seen by Dr. Badillo. She doesn't recommend transvaginal ultrasound at this time given she is only s/p 3 wks of hysterectomy and the risk of disrupting the cuff with the transvaginal probe is outweighed by the potential added information from the TVUS. Also deferred pelvic exam because the patient is not having any vaginal issues, discharge or bleeding at this time. Recommended discharge home with anticoagulant. Patient was discharge home with Xarelto 15mg BID [id number] and 20mg daily for total 3 months. Hx breast ca Patient was recommended to follow up with oncologist regarding tamoxifen and need for hypercoagulable workup given family history of DVT. Scheduled to follow up with the Heme/Onc. Total Time Spent: Greater than 30 minutes This includes examination of the patient, discharge planning, medication reconciliation, and communication with other providers. (Dillon Lima MD) I have reviewed the medical record and performed a history and physical examination of this patient today. I have discussed the case with Dr Lima. The above note reflects my findings, conclusions, and recommendations. Total Time Spent: Greater than 30 minutes (40) (Zehra Camargo M.D.) Discharge Instructions Please refer to the electronic Patient Visit Report (Discharge Instructions) for additional information. (Dillon Lima MD) Additional Copies To Georgiana Osborne M.D.
== END 2016-04-23 13:45 | disposition home or self-care (01) ==
LOC: ENRESERVTM → ENRESERVDT → EDBD 00:30 → C.EDA 00:31 → C.MS4N 03:47
PROVIDERS: ADMIT Hospitalist; ATTEND Family Medicine
DX: I82.890 Acute embolism and thrombosis of other specified veins (principal); Z85.3 Personal history of malignant neoplasm of breast; Z83.2 Family history of diseases of the blood and blood-forming organs and certain disorders involving the immune mechanism

== ENCOUNTER → 2016-12-03 | Outpatient (CLI) | payer BC ==
[~2016-12-03] MED LIST changes: -CLR10 PO; +DOCU-94 PO; +RIVA1TAB4 PO; -TAMO20TA47 PO; +TAMO20TA9 PO
== END | disposition home or self-care (01) ==
LOC: C.LABSPEC 17:19
PROVIDERS: ATTEND Physician Assistant
DX: B37.3 Candidiasis of vulva and vagina (principal)

== ENCOUNTER → 2017-01-04 | Outpatient (CLI) | payer BC ==
--- NOTE | 2017-01-04 14:56 | DIAGNOSTIC IMAGING REPORT ---
FLUOROSCOPIC GUIDED LEFT HIP STEROID INJECTION FLUOROSCOPY TIME: 4 seconds. A single fluoroscopic spot image. HISTORY: Left hip pain.. PROCEDURE: After obtaining written informed consent, the patient was placed supine on the fluoroscopy table. A suitable site for needle insertion was marked using fluoroscopic guidance. The left hip was prepped and draped in the usual sterile fashion. 1% lidocaine was used for skin, subcutaneous and deep soft tissue anesthesia. Under intermittent fluoroscopic guidance, a 22 gauge x 3.5 inch spinal needle was inserted into the left hip joint. 2 cc of Optiray 300 was injected to confirm the intra-articular location. This is followed by a mixture of 5cc of 0.5% bupivacaine and 2 cc of betamethasone at the request of the referring physician. The needle was then removed. There were no apparent complications. IMPRESSION: Fluoroscopic-guided left hip steroid injection without immediate complication. Electronically signed by: Carson Collins M.D. 01/04/2017 2:55 PM Dictated Date/Time: 01/04/2017 2:55 PM
== END | disposition home or self-care (01) ==
LOC: C.RADBC 13:41
PROVIDERS: ATTEND Orthopaedic Surgery
DX: M16.12 Unilateral primary osteoarthritis, left hip (principal)

== ENCOUNTER → 2017-06-23 | Outpatient (CLI) | payer OTHER ==
--- NOTE | 2017-06-23 11:14 | DIAGNOSTIC IMAGING REPORT ---
LEFT FOOT 3 VIEWS HISTORY: LEFT FOOT PAIN COMPARISON: None. FINDINGS: There is no fracture or dislocation. Soft tissues are unremarkable. No radiopaque foreign bodies. Severe cartilage space narrowing with [id number] articulation, subchondral sclerosis, and marginal osteophytes at the first tarsometatarsal joint. There is mild soft tissue swelling at this location. No definite bony erosions. There is also mild osteoarthritis at the first MTP joint. The Lisfranc joint is well aligned. IMPRESSION: 1. No fracture or dislocation within the left foot. 2. 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 Electronically signed by: Carson Collins M.D. 06/23/2017 11:13 AM Dictated Date/Time: 06/23/2017 11:10 AM
== END | disposition home or self-care (01) ==
LOC: C.RAD1850 10:59
PROVIDERS: ATTEND Family Medicine
DX: M79.672 Pain in left foot (principal); M19.072 Primary osteoarthritis, left ankle and foot

== ENCOUNTER 2017-09-30 04:55 | Inpatient (IN) | payer OTHER ==
[2017-08-10 13:37] VITALS: BMI 29.0
[2017-08-24 13:40] VITALS: BMI 31.0
--- NOTE | 2017-08-24 13:53 | PAT Medication Instructions ---
Service Date Aug 24, 2017. Current Home Medication List Letrozole (Femara), 2.5 MG PO QAM Loratadine (Claritin), 10 MG PO UD PRN for PRN Medication Instructions For Your Scheduled Surgery - Check with surgeon for instructions: Letrozole (Femara), 2.5 MG PO QAM - Hold the following medications the morning of surgery: Loratadine (Claritin), 10 MG PO UD PRN for PRN (if needed) - Take the following medications as scheduled the night before surgery: Loratadine (Claritin), 10 MG PO UD PRN for PRN (if needed) If you have any questions please call us at [phone] or [phone] or [phone]
--- NOTE | 2017-09-29 10:03 | HISTORY & PHYSICAL EXAMINATION ---
DATE OF ADMISSION: 09/30/2017 CHIEF COMPLAINT: Primary osteoarthritis of the left hip. HISTORY OF PRESENT ILLNESS: Violeta is a pleasant 52-year-old female who has been having left hip pain for about 3 years. X-rays and clinical examination were diagnostic for primary osteoarthritis of the left hip. She has tried intraarticular hip injections, which have taken care of all of her pain but unfortunately they do not last long. She has elected to proceed with a left total hip arthroplasty. PAST MEDICAL HISTORY: Significant for OVT, which is an ovarian blood clot after a hysterectomy over a year ago. She was on Xarelto for 3 months but it resolved. Breast cancer in 2013, which was treated with a lumpectomy. SURGICAL HISTORY: Significant for lumpectomy of the left breast in 2013 and D and C in 2014, hysterectomy in 2016. ALLERGIES: None. MEDICATIONS: Letrozole daily. FAMILY HISTORY: Significant for breast cancer in her mother. SOCIAL HISTORY: She is , has 3 drinks of alcohol a week. She has 2 kids. She lives with her . Her is able to take care of her. REVIEW OF SYSTEMS: She complains of left hip pain. All the pertinent review of systems are negative. PHYSICAL EXAMINATION: GENERAL: She is awake, alert, and orient x3. She is in no apparent distress. She is very pleasant. HEENT: Pupils equal, round, reactive to light. Extraocular movements intact. Oral mucosa is pink and moist. HEART: Regular rate per radial pulse. LUNGS: Puja symmetrically bilaterally with no audible breath sounds. ABDOMEN: Soft, nontender, nondistended. MUSCULOSKELETAL: She walks without a limp. Her leg lengths are equal. She has 90 degrees of flexion, 30 degrees of external rotation, 10 degrees of internal rotation. She does have pain at end ranges of motion of her left hip. She is neurovascularly intact. IMAGING DATA: X-rays of the left hip do show advanced osteoarthritis with joint space narrowing, osteophyte formation, and alcf-me-gche articulation. IMPRESSION: Primary osteoarthritis of the left hip. PLAN: We will proceed with an anterior left total hip arthroplasty. Postoperatively, she will be placed on aspirin for DVT prophylaxis and kept in the hospital for postoperative medical management. She has plan to use [facility] upon discharge.
[~2017-09-30] VITALS: Ht 167.6 cm; Wt 87.2 kg
[2017-09-30] VITALS (10 sets, daily range): BP systolic 101–156; BP diastolic 62–94; PULSE 55–69; TEMP 34.6–37; O2SAT 95–100; Ht 167.6 cm; Wt 87.2 kg
[~2017-09-30 04:55] MED LIST changes: +CLR10 PO; -DOCU-94 PO; +FMR25 PO; -RIVA1TAB4 PO; -TAMO20TA9 PO
[2017-09-30] MEDS ORDERED: ACET-1256 PO (05:34)
[2017-09-30] MEDS ORDERED: GABAPENTIN 600 MG PO SCH (06:00)
[2017-09-30] MEDS ORDERED: FAMOTIDINE 20 MG TAB PO SCH (06:00)
[2017-09-30] MEDS ORDERED: ROPIVACAINE 5MG/ML 30 ML 150 MG, BUPIVACAINE 0.5% MPF INJ 30 ML, EpINEphrine HCL INJ 0.... INFIL SCH ×8 (06:00)
[2017-09-30] MEDS ORDERED: ACETAMINOPHEN 500 MG TAB PO SCH (06:00)
[2017-09-30] MEDS ORDERED: CEFAZOLIN 2000MG IV PUSH 15 ML IV SCH (06:00)
[2017-09-30] MEDS ORDERED: LACTATED RINGER'S 1000ML 1,000 ML IV SCH ×2 (06:00)
[2017-09-30] MEDS ORDERED: LACTATED RINGER'S 1000ML 500 ML IV SCH (06:00)
[2017-09-30] MEDS ORDERED: BACITRACIN 50000 UNIT VIAL ONE (06:29)
[2017-09-30] MEDS ORDERED: ORTHO JOINT ANESTHETIC ONE (06:29)
[2017-09-30] MEDS ORDERED: PROPOFOL IV EMULSION 10 MG/ML 20 ML VIAL ONE ×2 (06:33→07:29)
[2017-09-30] MEDS ORDERED: FENTANYL CITRATE INJ 50 MCG/1 ML 2 ML VIAL ONE (06:36)
[2017-09-30] MEDS ORDERED: MIDAZOLAM HCL 1 MG/ML 2ML VIAL ONE (06:36)
[2017-09-30] MEDS ORDERED: BUPIVACAINE 0.5 % 5 MG/1 ML PF 10ML VIAL ONE (06:42)
[2017-09-30] MEDS: TRANEXAMIC ACID INJ 1,000 MG x 2 Bags IV SCH ×4 (06:47→10:44)
[2017-09-30] MEDS ORDERED: FLUMAZENIL 0.1 MG/1 ML 10 ML VIAL IV PRN (08:00)
[2017-09-30] MEDS ORDERED: HYDROmorphone INJ 0.5 MG/0.5 ML SYR IV PRN (08:00)
[2017-09-30] MEDS ORDERED: MEPERIDINE HCL 25 MG/ML CARP IV PRN (08:00)
[2017-09-30] MEDS ORDERED: ATROPINE SULFATE 0.1 MG/ML 5ML SYR IV PRN (08:00)
[2017-09-30] MEDS ORDERED: EpHEDrine SULFATE INJ 50 MG/ML AMP IV PRN (08:00)
[2017-09-30] MEDS ORDERED: NALOXONE HCL 0.4 MG/1 ML VIAL/CARP IV PRN (08:00)
[2017-09-30] MEDS ORDERED: LABETALOL HCL IV 5 MG/ML 20ML IV PRN (08:00)
[2017-09-30] MEDS ORDERED: PHENYLEPHRINE 100MCG/ML 5ML SYR IV PRN (08:00)
[2017-09-30] MEDS ORDERED: ONDANSETRON INJ 2 MG/ML 2 ML VIAL IV PRN ×2 (08:00→08:45)
[2017-09-30] MEDS ORDERED: FENTANYL CITRATE INJ 50 MCG/1 ML 2 ML VIAL IV PRN (08:00)
--- NOTE | 2017-09-30 08:39 | [facility] Post Operative Brief Note ---
Immediate Operative Summary Operative Date Sep 30, 2017. Pre-Operative Diagnosis Primary Osteoarthritis of the Left Hip Post-Operative Diagnosis Primary Osteoarthritis of the Left Hip Procedure(s) Performed Left Anterior Total Hip Arthroplasty, Uncemented Surgeon Dr. Castellanos Computer Support Specialist Instructor Surgeon(s) Keaton Scott PA-C Estimated Blood Loss 200cc Findings Consistent with Post-Op Diagnosis Specimens A: Left Femoral Head Anesthesia Type Spinal MAC
[2017-09-30] MEDS ORDERED: BISACODYL 10 MG SUPP PR PRN (08:45)
[2017-09-30] MEDS ORDERED: METOCLOPRAMIDE HCL INJ 5 MG/ML 2 ML VIAL IV PRN (08:45)
[2017-09-30] MEDS ORDERED: SOD PHOSPHATE/SOD BIPHOSPHATE ENEMA 132 ML BTL PR PRN (08:45)
[2017-09-30] MEDS ORDERED: MoRPHine SULFATE 2 MG/ML CARP IV PRN (08:45)
[2017-09-30] MEDS ORDERED: MAGNESIUM HYDROXIDE SUSP 30 ML UDC PO PRN (08:45)
--- NOTE | 2017-09-30 08:45 | Discharge Instructions ---
Discharge Instructions Date of Service Sep 30, 2017. Admission Reason for Admission: Left Hip Degenerative Joint Disease Discharge Discharge Diagnosis / Problem: Left Total Hip Discharge Goals Goal(s): Decrease discomfort, Improve function Activity Recommendations Activity Limitations: as noted below . Instructions / Follow-Up Instructions / Follow-Up Activity and Therapy Recommendations: * If you are using [facility] then Physical Therapy will be provided until they feel you are ready to start Outpatient Physical Therapy. If you are not using a Home Health agency then Outpatient Physical Therapy should start about 3-5 days from your day of surgery. Therapy will last about 3-6 weeks * You were shown a series of exercises in the hospital. Do these exercises three times each day including the exercises you were shown in physical therapy. * Get up and walk several times each day.~ For the first four weeks, try not to stand or walk for more than one hour at a time. If you do stand or walk for more than one hour, you will not hurt anything, but your leg will likely swell.~ ~ * As you feel comfortable, you may change from the walker or crutches to a cane and~then to independent walking. Medications: * Narcotic You will likely be sent home from the hospital with a prescription for the narcotic pain medication that worked best throughout your stay. * Aspirin Most patients will be required to take Aspirin 325mg twice a day for 6 weeks after surgery. This is obtained [id number] and a prescription is not necessary. * Other medications may be prescribed for specific circumstances. If you have any questions, please call the office at . * Resume previous home medications unless otherwise instructed TEDs/Elastic Stockings: The white elastic stockings help limit swelling and prevent blood clots from forming in your legs. The more you wear them, the more they work. Wear them for six weeks. Dressing Care: You will likely have a purple VAC dressing after surgery. This dressing will keep the incision dry and promote early healing. After about 8 days the batteries will wear out and the VAC will lose suction. Simply remove the dressing at that time and throw everything away, including the small suction machine. Then, you may leave the aileen open to air or cover them with a dry dressing so they do not rub on your pants. The aileen will be removed at your 2 week follow-up appointment. Showering: You may shower immediately with the purple VAC dressing. Let the shower spray hit your opposite side and slowly pat the plastic dry. Do not soak the dressing. After the dressing is removed you may shower normally with the aileen exposed. Let soapy water run over the aileen and pat them dry. Things To Watch For: * Drainage from the incision site that occurs more than one week after your surgery. * Increased redness at the incision site. * Fever above 102 degrees Fahrenheit. * Unusual chest pain or shortness of breath. * Call [facility] at with any of the above problems Follow-Up Visit: Follow-up with Dr. Castellanos 2 weeks after your day of surgery. An appointment was probably scheduled when you signed-up for surgery in the office. If you have any questions call Office Instructions: More detailed instructions as well as Frequently Asked Questions were provided in a folder by our office when you signed-up for surgery. Please review these instructions when you get home. If you have any further questions or concerns, please feel free to call the office at [phone] Current Hospital Diet Patient's current hospital diet: Regular Diet Discharge Diet Recommended Diet: Regular Diet Procedures Procedures Performed: Left Anterior Total Hip Arthroplasty, Uncemented Pending Studies Studies pending at discharge: no Medical Emergencies . Who to Call and When: Medical Emergencies: If at any time you feel your situation is an emergency, please call [phone] immediately. . Non-Emergent Contact Non-Emergency issues call your: Surgeon Call Non-Emergent contact if: wound has increased drainage, wound has increased redness . "Provider Documentation" section prepared by Prudencio Castellanos. .
--- NOTE | 2017-09-30 08:57 | DIAGNOSTIC IMAGING REPORT ---
L HIP UNILATERAL 1 VIEW CLINICAL HISTORY: LEFT ANTERIOR HIP COMPARISON STUDY: None. FINDINGS: Total fluoroscopy time was 30 seconds. 2 fluoroscopic spot images of the left hip demonstrate a left total hip arthroplasty. The hardware appears intact. No fracture or dislocation. IMPRESSION: Fluoroscopy provided for a left total hip arthroplasty. Electronically signed by: Carson Collins M.D. 09/30/2017 8:56 AM Dictated Date/Time: 09/30/2017 8:55 AM
--- NOTE | 2017-09-30 09:21 | DIAGNOSTIC IMAGING REPORT ---
AP PELVIS, CROSSTABLE LATERAL LEFT HIP History: Left total hip arthroplasty. Degenerative arthritis. Postop. FINDINGS: The patient is status post a left total hip arthroplasty. The hardware is intact. No fracture or dislocation. Skin aileen are in place. IMPRESSION: Left total hip arthroplasty. No evidence for hardware complication. Electronically signed by: Carson Collins M.D. 09/30/2017 9:20 AM Dictated Date/Time: 09/30/2017 9:19 AM
--- NOTE | 2017-09-30 09:25 | Anesthesiology Progress Note ---
Anesthesia Post Op Note Date & Time Sep 30, 2017 at 09:25 Vital Signs Pain Intensity: 0 Vital Signs Past 12 Hours Date Time Temp Pulse Resp B/P (MAP) Pulse Ox O2 Delivery O2 Flow Rate FiO2 09/30/17 09:11 53 13 100 09/30/17 09:11 56 13 09/30/17 09:06 50 16 97/66 100 09/30/17 09:06 51 16 09/30/17 09:01 52 11 97/66 100 09/30/17 09:01 52 11 09/30/17 08:56 75 17 95/70 99 09/30/17 08:56 36.1 60 12 95/70 100 Oxymask 10 09/30/17 08:56 65 17 09/30/17 05:39 36.4 69 16 156/94 98 Room Air Notes Mental Status: alert / awake / arousable, participated in evaluation Pt Amnestic to Procedure: Yes Nausea / Vomiting: adequately controlled Pain: adequately controlled Airway Patency, RR, SpO2: stable & adequate BP & HR: stable & adequate Hydration State: stable & adequate Neuraxial Anesthesia: was administered, sensory block is resolving Anesthetic Complications: no major complications apparent
[2017-09-30] MEDS ORDERED: NURSING VERBAL MED ORDER ONE (10:45)
--- NOTE | 2017-09-30 10:45 | OPERATIVE REPORT ---
DATE OF OPERATION: 09/30/2017 PREOPERATIVE DIAGNOSIS: Primary osteoarthritis of the left hip. POSTOPERATIVE DIAGNOSIS: Primary osteoarthritis of the left hip. PROCEDURE: Left total hip arthroplasty. SURGEON: Dr. Prudencio Castellanos. JAVA WEBSPHERE DEVELOPER: Keaton Scott PA-C, whose assistance was necessary for retraction and closure. ANESTHESIA: Spinal. COMPLICATIONS: None. CONDITION: Stable to PACU. IMPLANTS USED: I used a [employer] Taperloc total hip arthroplasty system with a size 9 pressfit Taperloc stem that was a standard offset, a 48 mm G7 cup, 32 mm E1 neutral poly liner with a single 25 mm screw, and a 32 mm ceramic head with a 0 standard neck. INDICATIONS: Violeta is a pleasant 52-year-old female who presented to my office with chronic increasing left hip and groin pain. X-rays and clinical examination were diagnostic for primary osteoarthritis of the left hip. After failing conservative treatment including intra-articular injections, she elected to proceed with a left total hip arthroplasty. DESCRIPTION OF PROCEDURE: On 09/30/2017, she arrived at [facility] for the above procedure. She was seen in the preoperative holding area and the operative extremity was identified and signed. She was given a preoperative antibiotic and a spinal anesthetic. She was taken back to the operating room, laid on the table in supine position and put under basic sedation. The left leg was brought to a Purist leg positioner. The left hip was then prepped and draped in sterile fashion. Time-out was done. The patient's operative extremity was properly identified. An anterior approach was used. Dissection was taken down through the fascia and the tensor muscle was retracted laterally and the rectus was retracted medially. The circumflex vessels were ligated. The capsule was incised and tagged for later repair. The femoral neck was then resected along the intertrochanteric line. The femoral head was removed. The acetabulum was then exposed. Time was spent doing a complete circumferential labral release. Sequential reaming of the acetabulum up to a size 47 reamer was done. Final reamings were done under fluoroscopy to ensure appropriate version. A 48 mm G7 cup was then impacted into place. A single 25 mm screw was placed. The E1 neutral poly liner was then snapped into place. Surrounding soft tissues were injected with 100 mL of an orthopedic pain control cocktail. The proximal femur was then exposed. Sequential broaching up to a size 9 broach was done. A standard head and neck assembly was trialed, the hip was reduced and fluoroscopic images showed anatomic alignment of the hip and good sizing the implants. The hip was then dislocated. The broach was removed. The final size 9 standard offset pressfit Taperloc stem was then impacted into place. A 32 mm ceramic head with a +0 neck was then impacted into place. The hip was reduced. Final fluoroscopic images showed anatomic alignment of the hip. The wound was then irrigated with 3 liters normal saline solution with bacitracin. The capsule was then closed with #1 Vicryl suture and fascia was closed with #1 PDS. Skin was closed with 2-0 Vicryl and aileen and a Prevena VAC dressing. She was then transferred to a hospital bed and taken to the postanesthesia care unit in stable condition. She tolerated the procedure well. I attest to the content of the Intraoperative Record and any orders documented therein. Any exception s are noted below.
[2017-09-30] MEDS: LETROZOLE 2.5 MG TAB PO SCH (10:56)
[2017-09-30] MEDS: MULTIVITAMIN TAB PO SCH (10:56)
[2017-09-30] MEDS: DOCUSATE SODIUM 100 MG CAP PO SCH ×2 (10:56→21:17)
[2017-09-30] MEDS: KETOROLAC TROMETHAMINE 30 MG/ML VIAL IV. SCH ×3 (11:52→23:54)
[2017-09-30] MEDS: ACETAMINOPHEN IV 1,000 MG in EMPTY BAG 0 ML IV SCH ×2 (14:23→22:01)
[2017-09-30] MEDS: SODIUM CHLORIDE 0.9% 1000ML 1,000 ML IV SCH (14:23)
[2017-09-30] MEDS: CEFAZOLIN IV 2,000 MG in SYRINGE 0 ML IV SCH ×2 (16:22→23:54)
[2017-09-30] MEDS: OXYCODONE HCL IR 5 MG TAB (IMMEDIATE RELEASE) PO PRN ×2 (16:25→21:17)
[2017-09-30] MEDS ORDERED: SENNA 8.6 MG TAB PO SCH (21:00)
[2017-09-30] MEDS: ASPIRIN 325 MG ECTAB PO SCH (21:18)
[2017-10-01] MEDS: SODIUM CHLORIDE 0.9% 1000ML 1,000 ML IV SCH (00:09)
[2017-10-01 03:44] VITALS: BP 131/88; PULSE 67; TEMP 36.7; O2SAT 98
[2017-10-01] MEDS: OXYCODONE HCL IR 5 MG TAB (IMMEDIATE RELEASE) PO PRN ×2 (04:02→08:53)
[2017-10-01] MEDS: ACETAMINOPHEN IV 1,000 MG in EMPTY BAG 0 ML IV SCH (05:55)
[2017-10-01] MEDS: KETOROLAC TROMETHAMINE 30 MG/ML VIAL IV. SCH ×2 (05:55→12:35)
[2017-10-01 06:43] LABS: BASO % 0.5 %; BASO ABS # 0.03 K/uL (0-0.2); EOS % 1.2 %; EOS ABS # 0.08 K/uL (0-0.5); HEMATOCRIT 34.8 % (37-47); HEMOGLOBIN 11.6 g/dL (12.0-16.0); IG# 0.01 K/uL (0.00-0.02); LYMPH % 32.8 %; LYMPH ABS # 2.14 K/uL (1.2-3.4); MEAN CELL VOLUME 90.6 fL (80-100); MEAN CORPUSCULAR HEMOGLOBIN 30.2 pg (25-34); MEAN CORPUSCULAR HGB CONC 33.3 g/dl (32-36); MEAN PLATELET VOLUME 10.4 fL (7.4-10.4); MONO % 5.2 %; MONO ABS # 0.34 K/uL (0.11-0.59); NEUT % 60.1 %; NEUT ABS # 3.93 K/uL (1.4-6.5); PLATELET COUNT 127 K/uL (130-400); RED CELL DISTRIBUTION WIDTH CV 13.1 % (11.5-14.5); RED CELL DISTRIBUTION WIDTH SD 43.2 fL (36.4-46.3); WHITE BLOOD COUNT 6.53 K/uL (4.8-10.8)
[2017-10-01 07:13] LABS: CALCIUM 7.7 mg/dl (8.5-10.1); CREATININE 0.71 mg/dl (0.60-1.20); POTASSIUM 3.6 mmol/L (3.5-5.1)
[2017-10-01 07:49] VITALS: BP 126/80; PULSE 71; TEMP 36.6; O2SAT 98
[2017-10-01] MEDS: LETROZOLE 2.5 MG TAB PO SCH (08:34)
[2017-10-01] MEDS: ASPIRIN 325 MG ECTAB PO SCH (08:34)
[2017-10-01] MEDS: MULTIVITAMIN TAB PO SCH (08:34)
[2017-10-01] MEDS: DOCUSATE SODIUM 100 MG CAP PO SCH (08:34)
[2017-10-01] MEDS ORDERED: ASPEC325 PO (08:48)
[2017-10-01] MEDS ORDERED: RXC5 PO (08:48)
--- NOTE | 2017-10-01 10:13 | PROGRESS NOTE ---
DATE: 10/01/2017 CHIEF COMPLAINT: Status post left total hip arthroplasty, postop day #1. PROGRESS: Violeta was seen and examined at bedside today. Overall, she is doing very well. She was up and ambulating well with physical therapy. Her pain is well controlled. She has no complaints. PHYSICAL EXAMINATION: LEFT HIP: The Prevena VAC dressing is to suction. Her leg lengths are equal. She is neurovascularly intact. DATA: Shows an H and H today of 11.6 and 34.8. Her glucose is 88. Her vital signs are all stable on room air and she is voiding on her own. IMPRESSION: X-rays postoperatively of the left hip showed the prosthesis to be in anatomic alignment without any evidence of fracture, dislocation, or loosening. IMPRESSION: Status post left total hip arthroplasty, postop day #1. PLAN: At this point, she is doing well. She will be seen by physical therapy today for ambulation. Her pain is well controlled. She is on aspirin for DVT prophylaxis. She will be discharged to home later this morning with [facility].
[2017-10-01 10:24] VITALS: BP 126/80; PULSE 71; TEMP 36.6; O2SAT 98
--- NOTE | 2017-10-01 11:50 | DISCHARGE SUMMARY ---
DISCHARGE DIAGNOSIS: Primary osteoarthritis of the left hip. PROCEDURE: Left total hip arthroplasty on 09/30/[address] Prudencio Castellanos. DISCHARGE INSTRUCTIONS: 1. Aspirin 325 mg twice a day for 6 weeks. 2. Oxycodone 5-10 mg every 4 hours as needed for pain. 3. Tylenol 1000 mg every 8 hours as needed. 4. Femara 2.5 mg daily. 5. Claritin 10 mg as needed. 6. Follow up with Dr. Castellanos in 2 weeks. 7. Start [facility] this week. 8. Call the office of Dr. Castellanos with any questions or concerns. HOSPITAL COURSE: Violeta is a pleasant 52-year-old female who presented to my office with chronic increasing left hip and groin pain. X-rays and clinical examination were diagnostic for primary osteoarthritis of the left hip. After failing conservative treatment, she elected to undergo a left total hip arthroplasty. On 09/30/2017, she arrived at [facility] and underwent a left hip replacement without complication. She had a spinal anesthetic. Postoperatively, she was discharged to general orthopedic floor. Her hospital course was uneventful. On postop day #1, her H and H was stable at 11.6 and 34.8. She is on aspirin for DVT prophylaxis. She was able to get up and ambulate well with physical therapy. Her pain was well controlled and she was subsequently discharged to home with [facility] and the above instructions.
[2017-10-01] MEDS ORDERED: ACETAMINOPHEN 500 MG TAB PO SCH (14:00)
== END 2017-10-01 13:20 | disposition home health service (06) | DRG 470 ==
LOC: C.ACU 04:55 → C.3E 08:43 → ENRESERV 09:14
PROVIDERS: ADMIT Orthopaedic Surgery; ATTEND Orthopaedic Surgery
PROC: 0SRB04Z Replacement of Left Hip Joint with Ceramic on Polyethylene Synthetic Substitute, Open Approach (ICD-10-PCS; principal; 2017-09-30 07:00)
DX: M16.12 Unilateral primary osteoarthritis, left hip (principal); Z86.718 Personal history of other venous thrombosis and embolism; Z85.3 Personal history of malignant neoplasm of breast; Z90.710 Acquired absence of both cervix and uterus